=== PATIENT | male | born 1940 | race Caucasian/White ===

== ENCOUNTER 2019-02-07 12:22 | Inpatient (IN) ==
[2019-02-07] MEDS ORDERED: D50W SYRINGE IV ONE (13:37)
[2019-02-07 13:58] LABS: BASO# 0.01 X1000 (0.0-0.2); BASO% 0.1 % (0.0-0.8); EOS# 0.17 X1000 (0.0-0.7); EOS% 1.7 % (0.0-10.0); HEMOGLOBIN 13.5 g/dL (14.0-18.0); IMM GRAN# 0.03 X1000 (0.0-0.04); IMM GRAN% 0.3 % (0.0-0.5); LYMPH# 0.77 X1000 (1.2-3.4); LYMPH% 7.7 % (20.5-51.1); MCH 30.3 PG (27-31); MCHC 32.9 g/dL (33-37); MCV 91.9 FL (81-99); MONO# 0.89 X1000 (0.11-0.59); MONO% 8.9 % (1.7-9.3); MPV 8.9 FL (7.4-10.4); NEUT# 8.13 X1000 (1.4-6.5); NEUT% 81.3 % (42.2-75.2); PLT 167 X1000 (130-400); RBC 4.46 XMIL (4.7-6.1); RDW 13.3 % (11.5-14.5)
--- NOTE | 2019-02-07 14:08 | Diag Imaging Result Doc PS360 ---
EXAM: CHEST-1 VIEW HISTORY: ams TECHNIQUE: Semiupright portable chest single view COMPARISON: 07/19/2014 FINDINGS: Poor inspiratory effort. The heart is enlarged. There are small pleural effusions with basilar atelectasis. IMPRESSION: Cardiomegaly with small effusions and basilar atelectasis. Follow-up films recommended. Electronically signed by Meet Stern 02/07/2019 2:06 PM
[2019-02-07 14:19] LABS: ALB/GLOB RATIO 1.1; ALBUMIN 3.6 g/dL (3.5-5.0); CALCIUM 8.5 mg/dL (8.8-10.2); CREATININE 5.3 mg/dL (0.7-1.2); POTASSIUM 5.4 mmol/L (3.5-5.1); TOTAL BILIRUBIN 0.42 mg/dL (0.20-1.00); TOTAL PROTEIN 6.9 g/dL (6.3-8.3)
--- NOTE | 2019-02-07 14:27 | Diag Imaging Result Doc PS360 ---
EXAM: CT HEAD W/O CONTRAST HISTORY: ams TECHNIQUE: CT head without contrast COMPARISON: None. FINDINGS: No parenchymal hemorrhage. No epidural or subdural hematoma. No subarachnoid hemorrhage. There is atrophy with chronic microvascular ischemic changes. No mass identified on this noncontrasted exam. No hydrocephalus. No sinus opacification. IMPRESSION: 1.No hemorrhage 2.Atrophy with chronic microvascular ischemic changes This exam was performed using automated exposure control, adjustment of mA or kV according to patient size, and/or use of iterative reconstruction technique. Electronically signed by Meet Stern 02/07/2019 2:25 PM
--- NOTE | 2019-02-07 15:40 | EKG Report ---
Test Performed on : 02/07/2019 2:39:31 PM Test Reason : ams Blood Pressure : / mmHG Vent. Rate : 069 BPM Atrial Rate : 074 BPM P-R Int : 000 ms QRS Dur : 156 ms QT Int : 448 ms P-R-T Axes : 000 -53 047 degrees QTc Int : 480 ms Wide QRS rhythm. Left axis deviation Right bundle branch block Septal infarct , age undetermined Abnormal ECG When compared with ECG of 13-MAY-2016 13:48, Wide QRS rhythm. has replaced Sinus rhythm. Unconfirmed Result
[2019-02-07] MEDS ORDERED: MORPHINE IV PRN (15:55)
[2019-02-07] MEDS ORDERED: ZOFRAN IV PRN (15:55)
[2019-02-07] MEDS ORDERED: D5 1/2 NS 1,000 ML IV ONE (15:58)
--- NOTE | 2019-02-07 16:00 | PROVIDER DOCUMENTATION ---
This chart was entered by Sofia Pruitt Scribe, acting as scribe for Ebenezer Chaudhry MD. HPI-General Adult - General Chief Complaint: Low Blood Sugar Stated Complaint: low blood sugar Time Seen by Provider: 02/07/19 13:10 Source: patient Allergies/Adverse Reactions: Patient Allergies Allergy/AdvReac Type Severity Reaction Status Date / Time hydromorphone HCl * Allergy Unknown Verified 02/07/19 14:04 [From Dilaudid] Home Medications: Home Medication List Medication Instructions Recorded Confirmed Last Taken Type Aspirin [Aspirin EC] 81 mg PO DAILY 07/18/14 02/07/19 01/31/19 09:00 History Insulin Detemir [Levemir] 35 unit SUBQ QAM 07/18/14 02/07/19 01/31/19 08:00 History LISINOpril [Prinivil] 20 mg PO BID 07/18/14 02/07/19 01/31/19 09:00 History Levothyroxine [Synthroid] 50 microgm PO DAILY 07/18/14 02/07/19 01/31/19 07:00 History Insulin Detemir [Levemir] 55 unit SUBQ HS 05/13/16 02/07/19 01/31/19 21:00 History Amlodipine [Norvasc] 2.5 mg PO DAILY 01/06/17 02/07/19 01/31/19 09:00 History Isosorbide Mononitrate [Isosorbide 30 mg PO DAILY 01/06/17 02/07/19 01/31/19 09:00 History Mononitrate ER] Carvedilol [Coreg] 12.5 mg PO BID 02/01/19 02/07/19 01/31/19 21:00 History Dutasteride [Avodart] 0.5 mg PO HS #90 cap 02/04/19 02/07/19 Unknown Rx Polyethylene Glycol 3350 [Miralax] 17 gm PO DAILY #30 powd.pack 02/04/19 02/07/19 Unknown Rx Tamsulosin [Flomax] 0.4 mg PO QHS #90 cap 02/04/19 02/07/19 Unknown Rx Tramadol/APAP [Ultracet 1 ea PO Q6H PRN PRN #30 tab 02/04/19 02/07/19 Unknown Rx 37.5MG/325Mg] - History of Present Illness -Gen Adult Nature of Presenting Problems: 78 y/o male presents to ED with hypoglycemia and AMS onset just prior to arr ival. EMS reports FSBS of 40 upon their arrival and that they gave d10 en route to ED. Family of pt states he usually takes care of himself and this is very different from his baseline. Pt is alert and oriented x1 . Location of Pain/Injury: reports: none Pain Radiation: reports: no radiation Quality of Pain: reports: none Severity: reports: mild Onset/Duration: reports: just prior to arrival Timing: reports: still present Context/Activities at Onset: reports: none Modifying Factors: improves with: nothing Associated Symptoms: reports: other (hypoglycemia; AMS) Similar Symptoms Previously?: No Recently seen or treated by another doctor?: No - Diabetes Related Context Context: reports: low blood sugar, change in mental status Review of Systems - Adult - REVIEW OF SYSTEMS - ADULT Constitutional: reports: other (AMS; hypoglycemia). denies: chills, fever Eyes: reports: no symptoms reported Ears, Nose, Mouth & Throat: reports: no symptoms reported Cardiovascular: denies: chest pain, palpitations Respiratory: denies: cough, shortness of breath Gastrointestinal: denies: abdominal pain, diarrhea, nausea, vomiting Genitourinary: reports: no symptoms reported Musculoskeletal: denies: back pain, joint pain Integumentary: reports: no symptoms reported Neurological: reports: other (AMS). denies: dizziness/vertigo, seizure Psychiatric: reports: no symptoms reported Endocrine: reports: other (hypoglycemia). denies: goiter Hematologic/Lymphatic: reports: no symptoms reported Allergic/Immunologic: reports: no symptoms reported All Other Systems: Reviewed and Negative Past History - Adult - PAST MEDICAL HISTORY-ADULT Review of Records: reports: Old Records Reviewed, Nursing Assessment Review, Medications Reviewed Major Childhood Illnesses: reports: denies history Cardiovascular: reports: HTN Endocrine/Immune: reports: Diabetes, thyroid disorder (hypo) Other Conditions: reports: other cancer (skin) - PRIOR SURGERIES/PROCEDURES Surgical/Procedure History: reports: back/neck (cervical fusion) - IMMUNIZATION STATUS Childhood Immunizations: See Nurse Assessment Flu Vaccine: See Nurse Assessment - FAMILY HISTORY Family History: reviewed, not pertinent - SOCIAL HISTORY Smoking: less than 1 pack/day Provider spent 3-5 mins advising pt. on dangers of tobacco.: Discussed manners to quit use, and f/u contacts for add'l counseling. Substance Use: none/never Alcohol Use Frequency: never Living Situation: family Physical Exam-General - PHYSICAL EXAM-ADULT Initial Vital Signs Reviewed: Yes - CONSTITUTIONAL General Appearance: appears well, no apparent distress, slow to respond, other (altered; follows commands; responsive after sternal rub; A&Ox1) - EYES Eyes: PERRL/EOMI, pink conjunctivae - HEAD, EARS, NOSE, MOUTH & THROAT HENMT: normocephalic/atraumatic, moist mucous membranes, normal ENT inspection - NECK Neck: non-tender, full range of motion - RESPIRATORY Respiratory: chest non-tender, lungs clear, normal breath sounds - CARDIOVASCULAR Cardiovascular: normal peripheral pulses, regular rate, rhythm - GASTROINTESTINAL (ABDOMEN) Abdominal Exam: normal bowel sounds, non tender, soft - MUSCULOSKELETAL Back Exam: normal inspection, no CVA tenderness Extremity: normal range of motion, non-tender, normal gait - SKIN Integumentary: normal color, warm/dry - NEUROLOGIC Neurologic: grossly normal, other (altered; follows commands; responsive after sternal rub; A&Ox1; slow to respond) - PSYCHIATRIC Psych/Mental Status: other (altered; follows commands; responsive after sternal rub; A&Ox1; slow to respond) Progress - PLAN OF CARE/RESULTS Progress/Plan/Lab Results: Vital Signs - 8 hr 02/07/19 13:27 Temperature 97.6 F Pulse Rate 64 Respiratory Rate 18 Blood Pressure 139/98 O2 Sat by Pulse Oximetry 95 Laboratory Results - last 24 hr 02/07/19 13:07 POC Glucose 95 Orders Category Date Time Status Nursing- Obtain EKG ONCE Care 02/07/19 13:35 Active CHEST-1 VIEW [RAD] Stat Exams 02/07/19 13:[address] HEAD W/O CONTRAST [CT] Stat Exams 02/07/19 13:47 Ordered CBC WITH ELECTRONIC DIFF [HEME] Stat Lab 02/07/19 13:39 Ordered COMPREHENSIVE METABOLIC PANEL [CHEM] Stat Lab 02/07/19 13:39 Ordered PRO B-NATRIURETIC PEPTIDE Stat Lab 02/07/19 13:39 Ordered TROPONIN T Stat Lab 02/07/19 13:39 Ordered UA [URINALYSIS] [URINALYSIS] Stat Lab 02/07/19 13:35 Uncollected Dextrose 50% Syringe [D50w Syringe] Med 02/07/19 13:37 Discontinued 50 ml IV NOW ONE EKG [EKG] Stat Ther 02/07/19 13:35 Ordered Laboratory Tests 02/07/19 02/07/19 02/07/19 13:07 13:15 13:15 WBC 10.00 RBC 4.46 L Hgb 13.5 L Hct 41.0 L MCV 91.9 MCH 30.3 MCHC 32.9 L RDW Std Deviation 13.3 Plt Count 167 MPV 8.9 Immature Gran % (Auto) 0.3 Neut % (Auto) 81.3 H Lymph % (Auto) 7.7 L [place] % (Auto) 8.9 Eos % (Auto) 1.7 Baso % (Auto) 0.1 Immature Gran # (Auto) 0.03 Neut # (Auto) 8.13 H Lymph # (Auto) 0.77 L [place] # (Auto) 0.89 H Eos # (Auto) 0.17 Baso # (Auto) 0.01 Sodium 125 L Potassium 5.4 H Chloride 94 L Carbon Dioxide 16 L Anion Gap 15 BUN 67 H Creatinine 5.3 H Estimated GFR/1.73 m2 10 BUN/Creatinine Ratio 13 Glucose 87 POC Glucose 95 Calculated Osmolality 270 Calcium 8.5 L Total Bilirubin 0.42 AST 10 ALT 6 L Alkaline Phosphatase 87 Troponin T Lmu-O-Pnnhntevejx Pept Total Protein 6.9 Albumin 3.6 Globulin 3.3 Albumin/Globulin Ratio 1.1 02/07/19 02/07/19 02/07/19 13:15 13:15 13:25 WBC RBC Hgb Hct MCV MCH MCHC RDW Std Deviation Plt Count MPV Immature Gran % (Auto) Neut % (Auto) Lymph % (Auto) [place] % (Auto) Eos % (Auto) Baso % (Auto) Immature Gran # (Auto) Neut # (Auto) Lymph # (Auto) [place] # (Auto) Eos # (Auto) Baso # (Auto) Sodium Potassium Chloride Carbon Dioxide Anion Gap BUN Creatinine Estimated GFR/1.73 m2 BUN/Creatinine Ratio Glucose POC Glucose 90 Calculated Osmolality Calcium Total Bilirubin AST ALT Alkaline Phosphatase Troponin T 0.092 H Ily-G-Uxnadsprimq Pept 1988 H Total Protein Albumin Globulin Albumin/Globulin Ratio 02/07/19 15:31 WBC RBC Hgb Hct MCV MCH MCHC RDW Std Deviation Plt Count MPV Immature Gran % (Auto) Neut % (Auto) Lymph % (Auto) [place] % (Auto) Eos % (Auto) Baso % (Auto) Immature Gran # (Auto) Neut # (Auto) Lymph # (Auto) [place] # (Auto) Eos # (Auto) Baso # (Auto) Sodium Potassium Chloride Carbon Dioxide Anion Gap BUN Creatinine Estimated GFR/1.73 m2 BUN/Creatinine Ratio Glucose POC Glucose 141 H D Calculated Osmolality Calcium Total Bilirubin AST ALT Alkaline Phosphatase Troponin T Cto-S-Fajyjkfxwvr Pept Total Protein Albumin Globulin Albumin/Globulin Ratio Result Diagrams: 02/07/19 13:15 02/07/19 13:15 - EKG 1 Time of EKG reading by physician:: 14:39 EKG Read and Signed by:: Ebenezer Chaudhry EKG Interpretation (*Must complete 3 of following elements*): Abnormal Rate: 69 Rhythm: Wide QRS [place]: left QRS: RBB, other (septal infarct) [place] Interval: normal ST Wave: normal - XRAY 1 XRAY Study: Chest Impression: Abnormal (FINDINGS: Poor inspiratory effort. The heart is enlarged. There are small pleural effusions with basilar atelectasis. IMPRESSION: Cardiomegaly with small effusions and basilar atelectasis. Follow-up films recommended. Electronically signed by Meet Stern 02/07/2019 2:06 PM) - CT/MRI 1 CT Study: Head Impression: Normal (FINDINGS: No parenchymal hemorrhage. No epidural or subdural hematoma. No subarachnoid hemorrhage. There is atrophy with chronic micro vascular ischemic changes. No mass identified on this noncontrasted exam. No hydrocephalus. No sinus opacification. IMPRESSION: 1.No hemorrhage 2.Atrophy with chronic microvascular ischemic changes This exam was performed using automated exposure control, adjustment of mA or kV according to patient size, and/or use of iterative reconstruction technique. Electronically signed by Meet Stern 02/07/2019 2:25 PM) - CONSULTS/PCP/HOSPITALIST Notification #1 *Consult/PCP/Hospitalist*: Dr. Canela Time Discussed: 15:42 Reason/Comments: AMS; hypoglycemia Consult Disposition: Admit Departure - Departure Date of Disposition Decision: 02/07/19 Time of Disposition Decision: 15:44 DIAGNOSIS: NSTEMI (non-ST elevated myocardial infarction) Altered mental status Qualifiers: Altered mental status type: unspecified Qualified Code(s): R41.82 - Altered mental status, unspecified Acute renal failure Qualifiers: Acute renal failure type: unspecified Qualified Code(s): N17.9 - Acute kidney failure, unspecified Disposition: ADMITTED INPATIENT 09 Certified Medical Emergency: Emergent Condition: Stable Referrals and Follow-Ups: Jose Canela MD [Primary Care Provider] - Discharge Education: Steps to Quit Smoking, [id number] - Critical Care Note This patient required my direct & personal management of CC.: No Attestation - Physician/ AMADEO Attestation Patient care was provided by Advanced Practice Provider:: No The physician spent face to face time with patient:: Yes Advanced Practice Provider documentation review:: Supervising physician onsite and consulted in the evaluation and care of this patient. The physician did have a face to face encounter with the patient. This chart was documented by the indicated scribe, (Sofia Pruitt, Saira) and accurately reflects the services I performed and decisions made by me, Ebenezer Chaudhry MD, as attested by the provider's signature.
--- NOTE | 2019-02-07 20:10 | Diag Imaging Result Doc PS360 ---
EXAM: US RENAL 2 (RETROPER) COMPLETE HISTORY: hong/arf TECHNIQUE: Renal ultrasound COMPARISON: None. FINDINGS: Neither kidney identified. The urinary bladder is overly distended with a volume of 1125 cc. The Wolff catheter is apparently inferior to the bladder. Recent CT demonstrated a markedly enlarged prostate. Electronically signed by Meet Stern 02/07/2019 8:08 PM
[2019-02-07 20:14] LABS: URINE SOURCE CATH
[2019-02-07 20:43] LABS: BILIRUBIN URINE NEGATIVE (NEGATIVE); BLOOD URINE LARGE (NEGATIVE); COLOR BROWN; GLUCOSE URINE NEGATIVE (NEGATIVE); KETONE URINE NEGATIVE (NEGATIVE); LEUKOCYTES URINE TRACE (NEGATIVE); NITRITE URINE NEGATIVE (NEGATIVE); PROTEIN URINE 100 mg/dL (NEGATIVE); SP GRAVITY URINE 1.001; TURBIDITY URINE HAZY (CLEAR); UR EPITHELIAL CELLS <10 /HPF (<10); URINE BACTERIA NEGATIVE /HPF; URINE RBC TNTC /HPF (<10); URINE WBC <10 /HPF (<10); UROBILINOGEN URINE NORMAL (NORMAL)
[2019-02-07 21:21] LABS: URINE CASTS NONE SEEN; URINE CRYSTALS NONE SEEN; URINE YEAST NONE SEEN
[2019-02-07] MEDS: PROTONIX IV SCH (21:29)
[2019-02-07] MEDS: FLOMAX PO SCH (21:30)
[2019-02-07] MEDS: SODIUM CHLORIDE 0.9% INJ SCH (21:30)
[2019-02-07] MEDS: AVODART PO SCH (21:30)
[2019-02-08] MEDS: SYNTHROID PO SCH (06:06)
[2019-02-08 06:07] LABS: BASO# 0.01 X1000 (0.0-0.2); BASO% 0.1 % (0.0-0.8)
[2019-02-08 06:23] LABS: EOS# 0.15 X1000 (0.0-0.7); EOS% 1.9 % (0.0-10.0); HEMOGLOBIN 11.9 g/dL (14.0-18.0); IMM GRAN# 0.02 X1000 (0.0-0.04); IMM GRAN% 0.3 % (0.0-0.5); LYMPH# 0.78 X1000 (1.2-3.4); LYMPH% 9.9 % (20.5-51.1); MCH 30.3 PG (27-31); MCHC 33.1 g/dL (33-37); MCV 91.6 FL (81-99); MONO# 0.71 X1000 (0.11-0.59); MPV 9.5 FL (7.4-10.4); NEUT# 6.21 X1000 (1.4-6.5); NEUT% 78.8 % (42.2-75.2); PLT 170 X1000 (130-400); RBC 3.93 XMIL (4.7-6.1); WBC 7.88 X1000 (4.8-10.8)
[2019-02-08 07:23] LABS: ALB/GLOB RATIO 0.9; ALBUMIN 2.8 g/dL (3.5-5.0); CALCIUM 7.9 mg/dL (8.8-10.2); CREATININE 4.9 mg/dL (0.7-1.2); POTASSIUM 4.9 mmol/L (3.5-5.1); TOTAL BILIRUBIN 0.46 mg/dL (0.20-1.00)
[2019-02-08] MEDS ORDERED: D5 1/2 NS 250 ML IV SCH (07:45)
--- NOTE | 2019-02-08 09:01 | HISTORY AND PHYSICAL ---
CHIEF COMPLAINT: Altered mental status, hypoglycemia, worsening of renal function status. HISTORY OF PRESENT ILLNESS: This 78-year-old white male was discharged recently on Thursday for chronic kidney disease and bladder outlet obstruction. The patient had a Wolff placed and subsequently was placed on Flomax and Avodart. Wolff was removed on Thursday and bladder voiding trial was initiated. He was not emptying the bladder. He has postvoid residual urine of more than 400, as per the nurses. I told the nurses to reinsert the Wolff with the leg bag, and send home on medications, to follow up with my office as well as Dr. Rider. Apparently, according to the , he is not making any urine. In the leg bag, they have not changed a whole lot, maybe more than 3 ounces. He was completely obtunded, unconscious, and blood sugar was dropping, and called 911 and brought to the hospital. Initial blood sugar was 41. He was subsequently given D50. Despite this, his mental status was not improved. The patient was placed on D5 [address] was negative. However, creatinine has gone up to 5.2. I did examine the patient in [facility] and the Wolff was there, and a lot of free urine was obtained. Bladder scan reported 163 mL. I called stat ultrasound. They were not able to see the kidneys due to a lot of edema. I asked the tech to do the bladder scan. Apparently, the Wolff was not well visible in the bladder, and he had 1200 mL in the bladder. I called the nurses to advance the Wolff catheter and now freely draining. Apparently, there was some kink or maybe the Wolff was slightly dislodged. As a result, he was rehospitalized for continued IV fluids, monitoring the blood sugars, and also we will closely monitor his cardiac status as well. PAST MEDICAL HISTORY: 1. Abnormal EKG with right bundle. 2. Allergic rhinitis. 3. BPH. 4. Diastolic heart failure. 5. Chronic kidney disease, now creatinine 3.0. 6. CAD with a stent in the LAD. 7. Type 2 diabetes. 8. Tobacco abuse. 9. Hypertension. 10. Hypothyroid. PAST SURGICAL HISTORY: 1. C5-C6 fusion. 2. Bilateral cataract surgery. 3. Umbilical hernia repair. 4. Cholecystectomy. 5. Stent in the LAD. ALLERGIES: Hydromorphone. SOCIAL HISTORY: for 56 years. Three children. Lives in [place]. No smoking. No alcohol. FAMILY HISTORY: Father , cause was not known. Mom with heart failure. HEALTH MAINTENANCE: Flu vaccine 2017, pneumococcal 2004, and last exam by Dr. Rider, colonoscopy 2019, eye exam [address] Cottrell. MEDICATIONS: 1. Lisinopril 20 p.o. b.i.d. 2. Synthroid 25 mcg daily. 3. Lantus 35 in the morning, 55 in the evening. 4. Aspirin 81 mg daily. 5. Isosorbide 30 mg daily. 6. Amlodipine 2.5 daily. 7. Coreg 12.5 p.o. b.i.d. 8. Avodart 0.5 daily. 9. Flomax 0.4 daily. 10. Ultracet as needed for pain. 11. MiraLAX 17 g daily. REVIEW OF SYSTEMS: The patient was completely obtunded and has complaints of lower abdominal pain. He denies having any chest pain, shortness of breath. He is not eating well. Mild swelling of feet. No focal symptoms or weakness. PHYSICAL EXAMINATION: VITAL SIGNS: Temperature is 97.7 degrees, tachycardic, vitals are stable, 95% on room air. HEENT: Atraumatic, normocephalic. Pupils equal, reactive to light. NECK: Supple. No lymphadenopathy. CHEST: Bilateral air entry. HEART: Sounds are regular. ABDOMEN: Belly is soft, obese, and nontender. Good bowel sounds. Wolff was seen. EXTREMITIES: No peripheral edema or cyanosis. NEUROLOGIC: No obvious neurological deficits. INVESTIGATIONS: CBC: White cell count 10, hematocrit 41, platelets 167,000. Sodium 135, potassium 5.4, BUN 67, creatinine 5.3, glucose 152. ProBNP slightly elevated. Urinalysis positive for blood. ASSESSMENT AND PLAN: An 78-year-old white male admitted to the hospital: 1. Altered mental status due to metabolic encephalopathy, due to hypoglycemia, due to worsening of the kidney injury from malposition of the Wolff catheter. Plan is advance the Wolff, follow up on creatinine, and continue D5 at 100 mL an hour. 2. Reconcile home medications slowly. 3. Benign prostatic hypertrophy, on Flomax and Avodart, and consult Dr. Rider. 4. Deep venous thrombosis prophylaxis with Lovenox. 5. Gastrointestinal prophylaxis with intravenous Protonix. 6. Monitoring daily with CBC and CMP. 7. Will closely monitor for signs of infection. 8. Discussed with the family at bedside and will follow up. 9. Will hold the insulin at this time. 10. Positive troponin is probably from the chronic kidney disease. He is not complaining of any chest pain. Recently, echocardiogram was done which showed normal left ventricular function. Will closely monitor. cc: Federico Canela MD
[2019-02-08] MEDS: MIRALAX PO SCH (09:35)
[2019-02-08] MEDS: LOVENOX SUBQ SCH (09:35)
[2019-02-08] MEDS: D5 1/2 NS 1,000 ML IV SCH ×2 (09:35→21:44)
[2019-02-08] MEDS: TYLENOL PO PRN (15:29)
--- NOTE | 2019-02-08 19:26 | PROGRESS NOTE ---
DATE: 02/08/2019 SUBJECTIVE: After repositioning the Wolff, the patient has excellent urine output. He still complains of cough. He is not drinking well. Appetite is poor. I spoke to Dr. Rider. At some point he needs a TURP. EXAMINATION: Vital Signs: Temperature is 98, pulse 72, blood pressure 127/55, General: Slightly confused and productive cough. Lungs: Bilateral air entry. Heart: Heart sounds are regular. Abdomen: Belly is soft, obese, nontender. Wolff was placed and urine output is excellent. INVESTIGATIONS: CBC: White cell count 7.8, hematocrit 36, platelets 170,000. Sodium 126, potassium 4.9, BUN 68, creatinine 4.9, glucose 178. ASSESSMENT AND PLAN: 1. Acute kidney injury due to bladder outlet obstruction. Repositioning of the Wolff and continue to monitor daily CBC and CMP. 2. Continue D5 half-normal saline 80 mL/hour. 3. Sliding scale with insulin coverage. 4. DVT prophylaxis with Lovenox. 5. Hypothyroidism, on Synthroid. 6. Discontinue morphine and slowly reconcile home medications. Out of the bed with physical therapy. Discussed with Dr. Rider for followup on BPH. Continue on Flomax and Avodart. LEVEL OF DOCUMENTATION: 25 minutes. cc: Federico Canela MD
[2019-02-08] MEDS: FLOMAX PO SCH (21:42)
[2019-02-08] MEDS: HUMALOG SUBQ SCH (21:42)
[2019-02-08] MEDS: PROTONIX IV SCH (21:42)
[2019-02-08] MEDS: AVODART PO SCH (21:42)
[2019-02-08] MEDS: SODIUM CHLORIDE 0.9% INJ SCH (21:42)
--- NOTE | 2019-02-08 23:27 | CONSULTATION ---
DATE OF CONSULTATION: 02/08/2019 ATTENDING/REFERRING PHYSICIAN: Dr. Canela. HISTORY OF PRESENT ILLNESS: This 78-year-old male was admitted with mental status changes and urinary retention. He also had acute on chronic renal failure. The patient was discharged home on 05 February with a Wolff catheter in place, and returned on 07 February with severe distention of his bladder. The Wolff catheter was readjusted and pushed further into the bladder, and 1200 mL of urine returned. Currently, he states he feels much better and is doing well. The patient was originally admitted on 31 January with severe left flank pain and problems voiding. His CT stone search at that time revealed mild hydronephrosis on the left, with a probable recently passed stone. Also noted, was a very large prostate measuring a 8.5 x 7.5 cm. At that time, the patient was started on Flomax 0.4 mg b.i.d. and Avodart 0.5 mg a day. He was going to undergo a voiding trial but the Wolff catheter was pulled back into his prostatic urethra that caused retention. PAST MEDICAL HISTORY: Includes hypertension, coronary artery disease, hypothyroidism, diabetes, chronic kidney disease. CURRENT MEDICATIONS: Documented on the chart and include Flomax 0.4 mg b.i.d. and Avodart 0.5 mg a day. PAST SURGICAL HISTORY: Cervical disk fusion, bilateral cataract surgery, umbilical hernia repair, open cholecystectomy, coronary artery stent placement. SOCIAL HISTORY: He smokes a small cigar once a day and has for many years. ETOH use negative. He lives at home. ALLERGIES: No known drug allergies. REVIEW OF SYSTEMS: He states he is usually in good health. He denies any chest pains, increased shortness of breath, strokes, seizures, or bowel problems. PHYSICAL EXAMINATION: General: An obese, age apparent, normally developed, white male, oriented in all ways and cooperative. HEENT: Normal for age. Lungs: Clear. Cardiovascular: Regular rate and rhythm, but distant breath sounds. Abdomen: Obese soft, nontender. No hepatosplenomegaly or masses. Normal bowel sounds. Genitourinary: On 01 February revealed a uncircumcised male with Wolff catheter in place. Both testes are down. Left side is high riding with small bilateral hydroceles. Rectal: On 01 February revealed normal sphincter tone with the prostate greater than 90 g, smooth and symmetric. Extremities: No clubbing, cyanosis, or edema. Neuro: No focal deficits. LABORATORY EVALUATION: He has a white count of 7.88, hemoglobin 11.9, hematocrit of 36, and platelets 170,000. His serum sodium is 126, potassium 4.9, chloride 96, bicarb 13, BUN 68, creatinine 4.9. Serum glucose was 159. His urine culture was no growth. IMPRESSION: Patient with multiple medical problems and urinary retention secondary to a malpositioned Wolff catheter. PLAN: 1. Recommend continuing Flomax at 0.4 mg a day and Avodart at 0.5 mg a day. 2. Keep Wolff catheter for 7 days. 3. We will try to schedule cystoscopic exam during this hospitalization. Thank you for this consultation. cc: MD Federico Silverman MD
[2019-02-09 05:49] LABS: BASO# 0.02 X1000 (0.0-0.2); BASO% 0.3 % (0.0-0.8); EOS# 0.21 X1000 (0.0-0.7); EOS% 3.4 % (0.0-10.0); HEMOGLOBIN 11.8 g/dL (14.0-18.0); IMM GRAN# 0.02 X1000 (0.0-0.04); IMM GRAN% 0.3 % (0.0-0.5); LYMPH# 0.74 X1000 (1.2-3.4); LYMPH% 11.8 % (20.5-51.1); MCH 30.2 PG (27-31); MCHC 32.8 g/dL (33-37); MCV 92.1 FL (81-99); MONO# 0.72 X1000 (0.11-0.59); MONO% 11.5 % (1.7-9.3); MPV 9.2 FL (7.4-10.4); NEUT# 4.54 X1000 (1.4-6.5); NEUT% 72.7 % (42.2-75.2); PLT 162 X1000 (130-400); RBC 3.91 XMIL (4.7-6.1); RDW 13.2 % (11.5-14.5); WBC 6.25 X1000 (4.8-10.8)
[2019-02-09] MEDS: SYNTHROID PO SCH (06:08)
[2019-02-09] MEDS: HUMALOG SUBQ SCH ×5 (06:09→20:02)
[2019-02-09 06:23] LABS: ALB/GLOB RATIO 0.8; ALBUMIN 2.6 g/dL (3.5-5.0); CALCIUM 7.9 mg/dL (8.8-10.2); CREATININE 4.1 mg/dL (0.7-1.2); POTASSIUM 4.8 mmol/L (3.5-5.1); TOTAL BILIRUBIN 0.3 mg/dL (0.20-1.00); TOTAL PROTEIN 5.7 g/dL (6.3-8.3)
[2019-02-09] MEDS: LOVENOX SUBQ SCH (08:51)
[2019-02-09] MEDS: MIRALAX PO SCH (08:51)
[2019-02-09] MEDS: D5 1/2 NS 1,000 ML IV SCH ×2 (11:14→23:19)
--- NOTE | 2019-02-09 19:15 | PROGRESS NOTE ---
DATE: 02/09/2019 SUBJECTIVE: The patient is still confused and weak. REVIEW OF SYSTEMS: None reported. OBJECTIVE: Vital Signs: Temperature is 98 degrees, pulse 62, blood pressure is 140/61. HEENT: Within normal limits. Chest: Bilateral air entry. Heart: Sounds are regular. Abdomen: Belly is soft, nontender. Wolff was draining. Extremities: Slight edema noted. LABORATORY INVESTIGATIONS: CBC: White cell count 6.2, hematocrit 36, platelets 162,000. Sodium 129, potassium 4.8, chloride 102, BUN 72, creatinine 4.1, glucose 215. LFTs were normal. Urine cultures were negative. ASSESSMENT: 1. Acute kidney injury with chronic renal failure due to bladder outlet obstruction. 2. Hyponatremia. 3. Diabetes with hypoglycemia. 4. Altered mental status, improving. PLAN OF CARE: Out of the bed with physical therapy. Advance the diet. Continue D5 half-normal saline and sliding scale with insulin coverage if the with sugar is more than 250. DVT/GI prophylaxis as per order sheet, and MiraLAX for constipation. We will continue to monitor BMP on a daily basis. Discussed with the family at bedside. LEVEL OF DOCUMENTATION: 25 minutes. cc: Federico Canela MD
[2019-02-09] MEDS: TYLENOL PO PRN (20:01)
[2019-02-09] MEDS: FLOMAX PO SCH (20:02)
[2019-02-09] MEDS: AVODART PO SCH (20:02)
[2019-02-09] MEDS: PROTONIX IV SCH (20:02)
[2019-02-09] MEDS: SODIUM CHLORIDE 0.9% INJ SCH (20:03)
[2019-02-10 05:24] LABS: BASO# 0.02 X1000 (0.0-0.2); BASO% 0.4 % (0.0-0.8); EOS# 0.21 X1000 (0.0-0.7); EOS% 4.3 % (0.0-10.0); HEMATOCRIT 36.1 % (42.0-52.0); HEMOGLOBIN 11.7 g/dL (14.0-18.0); IMM GRAN# 0.02 X1000 (0.0-0.04); IMM GRAN% 0.4 % (0.0-0.5); LYMPH# 0.63 X1000 (1.2-3.4); MCH 30.1 PG (27-31); MCHC 32.4 g/dL (33-37); MCV 92.8 FL (81-99); MONO# 0.55 X1000 (0.11-0.59); MONO% 11.4 % (1.7-9.3); MPV 8.7 FL (7.4-10.4); NEUT% 70.5 % (42.2-75.2); PLT 201 X1000 (130-400); RBC 3.89 XMIL (4.7-6.1); WBC 4.83 X1000 (4.8-10.8)
[2019-02-10 05:53] LABS: ALBUMIN 2.9 g/dL (3.5-5.0); CALCIUM 7.7 mg/dL (8.8-10.2); POTASSIUM 4.9 mmol/L (3.5-5.1); TOTAL BILIRUBIN 0.23 mg/dL (0.20-1.00); TOTAL PROTEIN 5.9 g/dL (6.3-8.3)
[2019-02-10] MEDS: HUMALOG SUBQ SCH ×4 (06:05→20:58)
[2019-02-10] MEDS: SYNTHROID PO SCH (08:21)
--- NOTE | 2019-02-10 09:38 | PROGRESS NOTE ---
DATE: 02/10/2019 SUBJECTIVE: The patient was out of the bed yesterday, ambulatory with physical therapy, feeling a little better. The patient is going for cystoscopy. REVIEW OF SYSTEMS: None reported. Confusion is improving. OBJECTIVE: Vital Signs: On examination, temperature is 97.9 degrees, pulse is 65, blood pressure is 160/71, 266 pounds. General: Awake and oriented. Chest: Clear. Heart: Distant heart sounds. Abdomen: Belly is soft, nontender. Wolff was placed. Extremities: 1+ edema noted. Neurologic: No obvious neurological deficits. LABS: CBC: White cell count 4.8, hematocrit 36, platelets 201. Sodium 136, potassium 4.9, BUN 56, creatinine 3.0, glucose is 252. ASSESSMENT AND PLAN: 1. Acute kidney injury due to bladder outlet obstruction. Creatinine is coming down. Gentle hydration. 2. Diabetes with hypoglycemia, stable. 3. Benign prostatic hypertrophy on Avodart and Flomax. 4. Hypothyroidism on Synthroid. 5. Deep vein thrombosis and gastrointestinal prophylaxis as per order sheet. Out of the bed. Follow up on cystoscopy and daily monitoring. LEVEL OF DOCUMENTATION: 25 minutes. cc: Federico Canela MD
[2019-02-10] MEDS: MIRALAX PO SCH (11:00)
[2019-02-10] MEDS: D5 1/2 NS 1,000 ML IV SCH (11:53)
[2019-02-10] MEDS ORDERED: XYLOCAINE-MPF 2% ONE (14:59)
[2019-02-10] MEDS ORDERED: DIPRIVAN 1% ONE (14:59)
[2019-02-10] MEDS ORDERED: ROBINUL ONE (14:59)
[2019-02-10] MEDS ORDERED: NEOSPORIN G.U. IRRIGANT ONE (15:13)
[2019-02-10] MEDS ORDERED: KEFZOL 2 GM/D5W 2 GM/50 ML IVPB ONE (15:17)
[2019-02-10] MEDS ORDERED: ZOFRAN ONE (15:35)
[2019-02-10] MEDS: MORPHINE ONE ×4 (16:25→17:59)
[2019-02-10] MEDS: NORCO-5 PO PRN ×2 (17:26→22:56)
--- NOTE | 2019-02-10 20:49 | OPERATIVE NOTE ---
PROCEDURE DATE: 02/10/2019 PREOPERATIVE DIAGNOSIS: Urinary retention with gross hematuria and an enlarged prostate. POSTOPERATIVE DIAGNOSIS: Urinary retention with gross hematuria and an enlarged prostate with bleeding areas at the bladder neck. PROCEDURE PERFORMED: 1. Cystoscopic exam. 2. Clot irrigation, fulgurate bleeding areas at the bladder neck. 3. Bilateral retrograde ureteral pyelograms. 4. Place Wolff catheter. ANESTHESIA: General via laryngeal mask. FINDINGS: Cystoscopic exam: Urethra-greater than 21 Bruneian, without stricture. Prostate - coapting lateral lobes, elevated bladder neck, length approximately 6.5 cm, median lobe present. Bladder-normal ureteral orifices bilaterally. Bullous edema of the trigone and posterior bladder wall consistent with a previously indwelling Wolff. There were some clots in the base of the bladder. There were grade 3 trabeculations. Small cellules throughout. No papillary lesions. No large diverticula. Left retrograde ureteral pyelogram revealed mild dilation of the ureter and the kidney collecting system, but no filling defects. Both sides were similar. Rectal exam reveals a prostate of greater than 100 g, smooth and symmetric. INDICATION FOR PROCEDURE: This 78-year-old male has a history of urinary retention. He developed gross hematuria. A Wolff catheter was placed and some clots were irrigated. He is currently anticoagulated due to cardiac problems. A CT scan revealed a markedly enlarged prostate and mild bilateral hydroureteronephrosis. His creatinine at admission was 4.1, after Wolff catheter drainage it is 3.0 today. DESCRIPTION OF PROCEDURE: After informed consent was obtained from the patient and family and him receiving IV antibiotics, he was taken to the main OR cystoscopy room, placed in the supine position. General anesthesia via laryngeal mask was achieved. He was then placed in the low lithotomy position, prepped and draped in the usual sterile fashion for cystoscopic exam. A 21- Bruneian sheath cystoscope was passed through the patient's urethra, prostate, and bladder with findings noted above. A Betty tip catheter syringe was used to irrigate clots from the bladder. The Bugbee electrode was placed and hemostasis was achieved at the bladder neck and proximal prostatic urethra. After the bladder was inspected, an 8-Bruneian cone-tip catheter was passed through the cystoscope, engaged in the left ureteral orifice. Contrast was injected. Right side was accomplished similarly. Again, no filling defects on either side. Each ureter was somewhat tortuous and a mild dilation on both sides. The drain film revealed emptying of both collecting systems. There was mild hydroureteronephrosis on either side. The ureters were tortuous. The 8-Bruneian cone-tipped catheter was removed. The Bugbee electrode was again placed and hemostasis was achieved. The bladder was left distended. The cystoscope was removed. A 20-Bruneian silicone Wolff catheter was passed through the patient's urethra and in the bladder. 20 mL of sterile water were placed in the Wolff's balloon. The Wolff was placed to gravity drain. The efflux was sanchez red, the catheter was irrigated and the efflux cleared to light pink. Rectal exam was performed. He tolerated the procedure well. Estimated blood loss was 5 mL. He was taken to recovery room in good condition. cc: MD Federico Silverman MD
[2019-02-10] MEDS: AVODART PO SCH (20:58)
[2019-02-10] MEDS: PROTONIX IV SCH (20:58)
[2019-02-10] MEDS: FLOMAX PO SCH (20:58)
[2019-02-10] MEDS: LOVENOX SUBQ SCH (21:35)
[2019-02-11] MEDS: D5 1/2 NS 1,000 ML IV SCH ×3 (00:02→13:20)
[2019-02-11] MEDS: HUMALOG SUBQ SCH ×4 (06:25→21:32)
[2019-02-11] MEDS: SYNTHROID PO SCH (06:26)
[2019-02-11] MEDS: MIRALAX PO SCH (08:14)
--- NOTE | 2019-02-11 11:04 | Diag Imaging Result Doc PS360 ---
EXAM: RETROGRADES 2 OR 3 FILMS INDICATION: BILAT RETROGRADE TECHNIQUE: COMPARISON: None. FINDINGS: 58 spot fluoroscopic images were provided, which were performed during retrograde pyeloureterogram by Dr. Víctor Rider. Both ureters have a very irregular contour with multifocal narrowing suggesting possible strictures. There is mild prominence of the right renal pelvis as compared to the left. At the upper pole calyx on the left, there are a couple of possible filling defects. These could represent stones or blood clots. However, note that no radiopaque stones are identified in this region on the recent CT dated 02/01/2019. IMPRESSION: As above. Please correlate with live fluoroscopic imaging. Electronically signed by Artie Newton 02/11/2019 11:02 AM
[2019-02-11] MEDS: NORCO-5 PO PRN ×2 (13:16→19:50)
--- NOTE | 2019-02-11 20:06 | PROGRESS NOTE ---
DATE: 02/11/2019 SUBJECTIVE: Interval history was reviewed. Dr. Rider has been consulted. He did a cystoscopy, bilateral retrograde pyelogram, placing Wolff catheter. He has retention of urine with gross hematuria, enlarged prostate with bleeding areas at bladder neck. He continues to have some blood in the Wolff. He is still weak and feeble. OBJECTIVE: Vital signs: Temperature is 98 degrees, pulse is 66, blood pressure is 182/78. Ins and outs are even. HEENT: Exam within normal limits. Neck: Supple. Chest: Clear. Cardiovascular: Heart sounds are regular. Abdomen: Belly is soft, obese, nontender. Genitourinary: Wolff was placed. Neurological: No obvious neurological deficits. INVESTIGATIONS: None reported. ASSESSMENT AND PLAN: 1. Chronic acute renal failure on chronic kidney disease. Continue gentle hydration at 80 mL an hour. 2. Repeat the labs in the morning. 3. Benign prostatic hypertrophy on Flomax and Avodart. 4. Deep venous thrombosis and gastrointestinal prophylaxis as per order sheet and Dr. Rider. He is going to do the transurethral resection of prostate sometime next week. Continue present treatment out of the bed with physical therapy and slowly reconcile his home medications, and since the blood pressure is running high, I am going to restart on amlodipine Coreg, isosorbide. cc: Federico Canela MD
[2019-02-11] MEDS: COREG PO SCH (21:32)
[2019-02-11] MEDS: PROTONIX IV SCH (21:32)
[2019-02-11] MEDS: FLOMAX PO SCH (21:32)
[2019-02-11] MEDS: LOVENOX SUBQ SCH (21:32)
[2019-02-11] MEDS: AVODART PO SCH (21:32)
[2019-02-12 05:50] LABS: BASO# 0.03 X1000 (0.0-0.2); BASO% 0.6 % (0.0-0.8); EOS# 0.39 X1000 (0.0-0.7); EOS% 7.7 % (0.0-10.0); HEMATOCRIT 38.3 % (42.0-52.0); HEMOGLOBIN 12.1 g/dL (14.0-18.0); LYMPH# 0.93 X1000 (1.2-3.4); LYMPH% 18.3 % (20.5-51.1); MCH 29.8 PG (27-31); MCHC 31.6 g/dL (33-37); MCV 94.3 FL (81-99); MONO# 0.56 X1000 (0.11-0.59); MPV 8.5 FL (7.4-10.4); NEUT# 3.17 X1000 (1.4-6.5); NEUT% 62.4 % (42.2-75.2); PLT 188 X1000 (130-400); RBC 4.06 XMIL (4.7-6.1); RDW 12.8 % (11.5-14.5); WBC 5.08 X1000 (4.8-10.8)
[2019-02-12] MEDS: NORCO-5 PO PRN ×3 (05:53→22:07)
[2019-02-12] MEDS: SYNTHROID PO SCH ×2 (05:54→06:30)
[2019-02-12 06:24] LABS: CALCIUM 8.2 mg/dL (8.8-10.2); CREATININE 2.3 mg/dL (0.7-1.2); POTASSIUM 5.1 mmol/L (3.5-5.1)
[2019-02-12] MEDS: D5 1/2 NS 1,000 ML IV SCH (06:30)
[2019-02-12] MEDS: HUMALOG SUBQ SCH ×4 (06:51→22:08)
[2019-02-12] MEDS: IMDUR PO SCH (09:03)
[2019-02-12] MEDS: NORVASC PO SCH (09:03)
[2019-02-12] MEDS: MIRALAX PO SCH (09:03)
[2019-02-12] MEDS: COREG PO SCH ×2 (09:03→22:07)
--- NOTE | 2019-02-12 18:36 | PROGRESS NOTE ---
DATE: 02/12/2019 SUBJECT: The patient is doing much better. He is out of the bed and his mental status slowly improving. He is watching TV. is at bedside. REVIEW OF SYSTEMS: None reported. EXAMINATION: Temperature is 97.5 degrees, pulse is 64, blood pressure is 154/62.HEENT: Within normal limits. Chest: Clear. Heart: Sounds are regular. Belly: Is soft, nontender. Wolff was clear of blood. INVESTIGATIONS: CBC. White cell count 5.0, hematocrit 38, platelets 188,000. SMA 7. Sodium 137, potassium 5.1, BUN 33, creatinine 2.3. ASSESSMENT AND PLAN: 1. Acute kidney injury with chronic kidney disease due to bladder outlet obstruction, stable. 2. Waiting for transurethral resection of prostate next week. 3. Altered mental status, delirium improving. 4. Diabetes. Hypoglycemia is improving. 5. Discontinue IV fluids today. 6. Benign prostatic hypertrophy. Continue on Flomax and Avodart. 7. Hypertension on Norvasc and Coreg. 8. Deep venous thrombosis prophylaxis with Lovenox. Continue insulin with sliding scale coverage and hypothyroidism on Synthroid and will continue to monitor blood workup over the weekend and he is going to stay here until TURP done. LEVEL OF DOCUMENTATION: 25 minutes. cc: Federico Canela MD
[2019-02-12] MEDS: PROTONIX IV SCH (22:07)
[2019-02-12] MEDS: AVODART PO SCH (22:07)
[2019-02-12] MEDS: FLOMAX PO SCH (22:08)
[2019-02-12] MEDS: LOVENOX SUBQ SCH (22:08)
[2019-02-13 05:30] LABS: BASO# 0.02 X1000 (0.0-0.2); BASO% 0.4 % (0.0-0.8); EOS# 0.35 X1000 (0.0-0.7); EOS% 7.2 % (0.0-10.0); HEMATOCRIT 37.4 % (42.0-52.0); HEMOGLOBIN 11.7 g/dL (14.0-18.0); IMM GRAN# 0.03 X1000 (0.0-0.04); IMM GRAN% 0.6 % (0.0-0.5); LYMPH# 0.98 X1000 (1.2-3.4); LYMPH% 20.2 % (20.5-51.1); MCH 29.4 PG (27-31); MCHC 31.3 g/dL (33-37); MONO# 0.62 X1000 (0.11-0.59); MONO% 12.8 % (1.7-9.3); MPV 8.5 FL (7.4-10.4); NEUT# 2.84 X1000 (1.4-6.5); NEUT% 58.8 % (42.2-75.2); PLT 194 X1000 (130-400); RBC 3.98 XMIL (4.7-6.1); RDW 12.6 % (11.5-14.5); WBC 4.84 X1000 (4.8-10.8)
[2019-02-13 05:49] LABS: CALCIUM 8.4 mg/dL (8.8-10.2); CREATININE 2.1 mg/dL (0.7-1.2); POTASSIUM 5.4 mmol/L (3.5-5.1)
[2019-02-13] MEDS: HUMALOG SUBQ SCH ×4 (06:26→21:01)
[2019-02-13] MEDS: SYNTHROID PO SCH (06:45)
[2019-02-13] MEDS: NORCO-5 PO PRN (06:45)
[2019-02-13] MEDS: NORVASC PO SCH (08:24)
[2019-02-13] MEDS: IMDUR PO SCH (08:24)
[2019-02-13] MEDS: MIRALAX PO SCH (08:24)
[2019-02-13] MEDS: COREG PO SCH ×2 (08:24→20:58)
[2019-02-13] MEDS ORDERED: DULCOLAX PO ONE (10:23)
--- NOTE | 2019-02-13 12:32 | PROGRESS NOTE ---
DATE: 02/13/2019 SUBJECTIVE: The patient complains with pain unrelieved by [place] 5. He states that it seems to wear off too soon. He also has some constipation and has not had a bowel movement in 3 days. [place] was increased to 7.5 q.6 hours p.r.n. pain, and he was given Dulcolax 5 mg once today in addition to his daily MiraLAX. OBJECTIVE: Vital signs: Stable with temperature 98.9 degrees, heart rate 58, respiration 18, blood pressure 156/72, O2 saturation on room air 96%. Chest: Clear. Abdomen: Obese without mass or tenderness. Extremities: He has no ankle edema. He has an indwelling Wolff. LABORATORY: Hemoglobin 11.7, hematocrit 37.4, white blood count 4800 with normal differential. Sodium 136, potassium 5.4, BUN 31, creatinine 2.1, glucose 192, calcium 8.4. ASSESSMENT AND PLAN: Plans are for prostate surgery early this week. cc: MD Federico Mendez MD
[2019-02-13] MEDS: NORCO-7.5 PO PRN ×2 (13:49→20:58)
[2019-02-13] MEDS: PROTONIX IV SCH (20:57)
[2019-02-13] MEDS: FLOMAX PO SCH (20:57)
[2019-02-13] MEDS: LOVENOX SUBQ SCH (20:58)
[2019-02-13] MEDS: AVODART PO SCH (21:00)
[2019-02-14 05:43] LABS: BASO# 0.02 X1000 (0.0-0.2); BASO% 0.4 % (0.0-0.8); EOS% 6.3 % (0.0-10.0); HEMATOCRIT 37.1 % (42.0-52.0); HEMOGLOBIN 11.9 g/dL (14.0-18.0); IMM GRAN# 0.03 X1000 (0.0-0.04); IMM GRAN% 0.6 % (0.0-0.5); LYMPH# 1.12 X1000 (1.2-3.4); LYMPH% 23.5 % (20.5-51.1); MCHC 32.1 g/dL (33-37); MCV 93.5 FL (81-99); MONO# 0.46 X1000 (0.11-0.59); MONO% 9.6 % (1.7-9.3); MPV 8.6 FL (7.4-10.4); NEUT# 2.84 X1000 (1.4-6.5); NEUT% 59.6 % (42.2-75.2); PLT 185 X1000 (130-400); RBC 3.97 XMIL (4.7-6.1); RDW 12.5 % (11.5-14.5); WBC 4.77 X1000 (4.8-10.8)
[2019-02-14 05:55] LABS: CALCIUM 8.3 mg/dL (8.8-10.2); CREATININE 2.2 mg/dL (0.7-1.2)
[2019-02-14] MEDS: SYNTHROID PO SCH (06:01)
[2019-02-14] MEDS: HUMALOG SUBQ SCH ×4 (06:01→21:24)
[2019-02-14] MEDS: NORCO-7.5 PO PRN ×3 (06:03→21:23)
[2019-02-14] MEDS: COREG PO SCH ×2 (09:10→21:24)
[2019-02-14] MEDS: IMDUR PO SCH (09:10)
[2019-02-14] MEDS: MIRALAX PO SCH (09:10)
[2019-02-14] MEDS: NORVASC PO SCH (09:10)
--- NOTE | 2019-02-14 19:15 | PROGRESS NOTE ---
DATE: 02/14/2019 SUBJECTIVE: Patient is doing much better and is off IV fluids. OBJECTIVE: Vital Signs: Temperature is 98 degrees, pulse 95, blood pressure is stable, and inputs and outputs -580. HEENT: Exam within normal limits. Chest: Clear. Heart: Sounds are regular. Abdomen: Belly is soft, obese. Extremities: No peripheral edema. INVESTIGATIONS: White cell count 4.7, hematocrit 37, platelets 185,000. SMA 7: BUN 35, creatinine 2.2. ASSESSMENT AND PLAN: 1. Acute kidney injury with chronic kidney disease due to bladder outlet obstruction, waiting for transurethral resection of prostate. 2. Benign prostatic hypertrophy, on Flomax and Avodart. 3. Hypertension, on Norvasc and Coreg. 4. Deep venous thrombosis prophylaxis with Lovenox. 5. Hypothyroidism, on Synthroid. 6. Type 2 diabetes, on hold on the insulin because of hypoglycemia. Currently on sliding scale with insulin coverage. Also, stopped the lisinopril due to worsening of kidney disease. 7. Will discuss with Dr. Rider about the transurethral resection of prostate. Currently stable. LEVEL OF DOCUMENTATION: 25 minutes cc: Federico Canela MD MTDD
[2019-02-14] MEDS: FLOMAX PO SCH (21:24)
[2019-02-14] MEDS: PROTONIX IV SCH (21:24)
[2019-02-14] MEDS: AVODART PO SCH (21:24)
[2019-02-14] MEDS: LOVENOX SUBQ SCH (21:30)
[2019-02-15] MEDS: SYNTHROID PO SCH ×2 (05:31→06:38)
[2019-02-15] MEDS: HUMALOG SUBQ SCH ×4 (06:39→20:55)
[2019-02-15] MEDS: MIRALAX PO SCH (08:34)
[2019-02-15] MEDS: NORVASC PO SCH (08:34)
[2019-02-15] MEDS: NORCO-7.5 PO PRN ×3 (08:34→22:05)
[2019-02-15] MEDS: COREG PO SCH ×2 (08:35→20:55)
[2019-02-15] MEDS: IMDUR PO SCH (08:35)
[2019-02-15] MEDS: PROTONIX PO SCH (20:55)
[2019-02-15] MEDS: AVODART PO SCH (20:55)
[2019-02-15] MEDS: FLOMAX PO SCH (20:55)
[2019-02-15] MEDS: LOVENOX SUBQ SCH (20:55)
--- NOTE | 2019-02-15 21:42 | PROGRESS NOTE ---
DATE: 02/15/2019 SUBJECTIVE: The patient is stable. No complaints. OBJECTIVE: On exam, temperature is 97 degrees, pulse 52. Vital signs are stable. The last intake and output is -1.9. On physical exam belly is soft, nontender. Wolff was placed. LABORATORY DATA: Urine cultures were negative. ASSESSMENT AND PLAN: 1. Acute kidney injury due to chronic kidney failure, due to bladder outlet obstruction. I am just waiting for Dr. Rider to operate based on his schedule. Family is anxious. Continue on Flomax and Avodart. 2. The rest of the problems are stable, and the patient is out of the bed. 3. Continue deep venous thrombosis prophylaxis. We will call Dr. Rider about his plans to operate, and continue present treatment. Level of documentation 15 minutes. cc: Federico Canela MD
[2019-02-16] MEDS: HUMALOG SUBQ SCH ×4 (06:00→20:31)
[2019-02-16] MEDS: SYNTHROID PO SCH (06:05)
[2019-02-16] MEDS: NORCO-7.5 PO PRN ×3 (07:10→22:10)
[2019-02-16] MEDS: MIRALAX PO SCH (09:00)
[2019-02-16] MEDS: COREG PO SCH ×2 (09:00→20:28)
[2019-02-16] MEDS: NORVASC PO SCH (09:00)
[2019-02-16] MEDS: IMDUR PO SCH (09:00)
[2019-02-16] MEDS: AVODART PO SCH (20:28)
[2019-02-16] MEDS: FLOMAX PO SCH (20:28)
[2019-02-16] MEDS: LOVENOX SUBQ SCH (20:28)
[2019-02-16] MEDS: PROTONIX PO SCH (20:28)
--- NOTE | 2019-02-16 21:56 | PROGRESS NOTE ---
DATE: 02/16/2019 SUBJECTIVE: The patient is doing better. Dr. Rider saw the patient yesterday. No complaints. OBJECTIVE: On examination, temperature is 98 degrees, pulse 53, vital signs are stable. HEENT exam within normal limits. Neck is supple. Chest is clear. Heart sounds are regular. Belly is soft, obese, nontender. Good bowel sounds. Wolff was placed. LABORATORY DATA: Urine cultures are negative. ASSESSMENT AND PLAN: Acute kidney injury on chronic renal failure due to benign prostatic hypertrophy. Dr. Rider is planning to do surgery either or Thursday. Creatinine is stable. No labs were done. We will repeat the labs on Thursday morning. Continue present treatment. Level of documentation 15 minutes. cc: Federico Canela MD
[2019-02-17] MEDS: HUMALOG SUBQ SCH ×4 (06:08→23:56)
[2019-02-17] MEDS: SYNTHROID PO SCH (06:15)
[2019-02-17] MEDS: NORVASC PO SCH (08:57)
[2019-02-17] MEDS: IMDUR PO SCH (08:57)
[2019-02-17] MEDS: MIRALAX PO SCH (08:57)
[2019-02-17] MEDS: COREG PO SCH ×2 (08:57→20:10)
[2019-02-17] MEDS ORDERED: CALMOSEPTINE OINTMENT TOP PRN (09:43)
[2019-02-17] MEDS: NORCO-7.5 PO PRN ×2 (09:56→20:10)
[2019-02-17] MEDS: AVODART PO SCH (20:10)
[2019-02-17] MEDS: FLOMAX PO SCH (20:10)
[2019-02-17] MEDS: LOVENOX SUBQ SCH (20:11)
[2019-02-17] MEDS: PROTONIX PO SCH (20:11)
--- NOTE | 2019-02-18 02:25 | PROGRESS NOTE ---
DATE: 02/17/2019 SUBJECTIVE: The patient is anxious. He is medically stable. Waiting to be done TURP by Dr. Mao Rider, and he is out of the bed. He is anxious to be done. OBJECTIVE: Vital signs: Temperature 98 degrees. Vitals are stable. General: Morbidly obese. Physical exam no change. He has a Wolff was placed. ASSESSMENT AND PLAN: 1. Acute kidney injury on chronic renal failure, currently stable. Repeat the labs in the morning. Waiting for transurethral resection of prostate. 2. Rest of his problems: Coronary artery disease, diabetes, hypertension, stable. Continue present treatment. Appreciated Dr. Rider consult, and will follow up. LEVEL OF DOCUMENTATION: 25 minutes. cc: Federico Canela MD
[2019-02-18 05:43] LABS: HEMATOCRIT 35.3 % (42.0-52.0); HEMOGLOBIN 11.1 g/dL (14.0-18.0); MCH 30.2 PG (27-31); MCHC 31.4 g/dL (33-37); MCV 95.9 FL (81-99); MPV 9.2 FL (7.4-10.4); RBC 3.68 XMIL (4.7-6.1); RDW 12.6 % (11.5-14.5); WBC 4.55 X1000 (4.8-10.8)
[2019-02-18 06:01] LABS: INR 1.06; PROTIME 14.7 Seconds (11.0-16.0)
[2019-02-18] MEDS: HUMALOG SUBQ SCH ×4 (06:12→21:04)
[2019-02-18] MEDS: SYNTHROID PO SCH (06:12)
[2019-02-18 06:18] LABS: CALCIUM 8.4 mg/dL (8.8-10.2); CREATININE 2.2 mg/dL (0.7-1.2)
[2019-02-18] MEDS: NORCO-7.5 PO PRN ×2 (07:24→18:27)
[2019-02-18] MEDS ORDERED: DIPRIVAN 1% ONE (11:41)
[2019-02-18] MEDS: COREG PO SCH ×2 (11:48→18:27)
[2019-02-18] MEDS ORDERED: KEFZOL 1 GM/D5W 2 GM/100 ML IVPB ONE (13:17)
[2019-02-18] MEDS ORDERED: GENTAMICIN 80 MG/NS 80 MG/50 ML IVPB ONE (13:18)
[2019-02-18] MEDS ORDERED: SUFENTA ONE (13:32)
[2019-02-18] MEDS ORDERED: B & O 15A SUPP ONE (14:29)
[2019-02-18] MEDS ORDERED: ROBINUL ONE (14:29)
[2019-02-18] MEDS ORDERED: DECADRON ONE (14:29)
[2019-02-18] MEDS ORDERED: ZOFRAN ONE (14:29)
[2019-02-18] MEDS ORDERED: B & O 15A SUPP PR PRN (17:38)
[2019-02-18] MEDS ORDERED: DITROPAN PO PRN (17:39)
[2019-02-18 17:51] LABS: HEMATOCRIT 40.7 % (42.0-52.0); MCH 30.1 PG (27-31); MCHC 31.9 g/dL (33-37); MCV 94.2 FL (81-99); MPV 9.1 FL (7.4-10.4); RBC 4.32 XMIL (4.7-6.1); RDW 12.5 % (11.5-14.5); WBC 5.88 X1000 (4.8-10.8)
[2019-02-18 18:09] LABS: CALCIUM 7.1 mg/dL (8.8-10.2); CREATININE 1.7 mg/dL (0.7-1.2); POTASSIUM 5.3 mmol/L (3.5-5.1)
[2019-02-18] MEDS: NS 1,000 ML IV SCH (18:27)
[2019-02-18] MEDS: NORVASC PO SCH (18:28)
[2019-02-18] MEDS ORDERED: MORPHINE IV ONE (18:47)
--- NOTE | 2019-02-18 20:13 | PROGRESS NOTE ---
DATE: 02/18/2019 SUBJECTIVE: The patient just had a TURP done. SPC was placed. Discussed with the family as well as Dr. Rider. REVIEW OF SYSTEMS: None reported. OBJECTIVE: Vital Signs: Stable. HEENT: Within normal limits. Chest: Clear. Heart: Sounds are regular. Abdomen: Belly is soft, nontender. INVESTIGATIONS: CBC: White cell count 4.5, hematocrit 35, platelets 162,000. Sodium 134, potassium 5.0, BUN 35, creatinine 2.2, glucose 209, calcium 8.4. Urine cultures were negative. ASSESSMENT AND PLAN: 1. Acute kidney injury with chronic kidney failure, stable. 2. Benign prostatic hypertrophy, and status post transurethral resection of prostate. Will follow up in the labs in the morning. 3. Gentle hydration. 4. Continue home medications. 5. Discussed the plan of care with the family. Will follow up. LEVEL OF DOCUMENTATION: 25 minutes. cc: Federico Canela MD
[2019-02-18] MEDS: MIRALAX PO SCH (21:04)
[2019-02-18] MEDS: PROTONIX PO SCH (21:05)
[2019-02-18] MEDS: IMDUR PO SCH (21:05)
[2019-02-18] MEDS: KEFZOL 1 GM/D5W 1 GM/50 ML IVPB IV SCH (21:10)
--- NOTE | 2019-02-18 21:55 | OPERATIVE NOTE ---
PROCEDURE DATE: 02/18/2019 SURGEON: Víctor Rider MD. PREOPERATIVE DIAGNOSIS: Markedly enlarged prostate with urinary retention. POSTOPERATIVE DIAGNOSIS: Markedly enlarged prostate with urinary retention. PROCEDURE PERFORMED: 1. Cystoscopic exam. 2. Transurethral resection of the prostate. 3. Placement of a suprapubic tube. ANESTHESIA: General via laryngeal mask. FINDINGS: Cystoscopic exam: Urethra-greater than 28-Bulgarian without stricture. Prostate-coapting lateral lobes, elevated bladder neck, length approximately 7 cm. Bladder-normal ureteral orifices bilaterally. Grade 3 trabeculations with small cellules and diverticula throughout. No papillary lesions. There is bullous edema on the trigone and posterior wall consistent with the indwelling Wolff catheter. Rectal exam revealed a prostate of greater than 80 g, smooth and symmetric. INDICATION FOR PROCEDURE: This 78-year-old male has a long history of enlarged prostate with obstructive voiding. He developed urinary retention and has had a Wolff catheter in place. He has had voiding trials without success. DESCRIPTION OF PROCEDURE: After informed consent was obtained from the patient and family and him receiving IV antibiotics, he was taken the main OR cystoscopy room, placed in the supine position. General anesthesia via laryngeal mask was achieved. He was then placed in a low lithotomy position and prepped and draped in the usual sterile fashion for cystoscopic exam and lower abdominal surgery. A 21-Bulgarian sheath cystoscope was passed the patient's urethra, prostate, and bladder findings noted above. The bladder was distended. The cystoscope was removed. The 28- Bulgarian continuous flow resectoscope sheath was placed. The thick Gyrus loop electrode was placed. The machine was set at 100 coag, 200 cut and the resection was started 6 o'clock position, going from the level of bladder neck, level of the verumontanum in steps. The prostatic urethra was too long to be able to resect with 1 swipe. The resection was started 6 o'clock position, going to the mid prostate. We then proceeded in a counterclockwise direction up to the 2 o'clock position. Resection was then started back at the 6 o'clock position, going from the level of bladder neck to the midprostate proceeding in a clockwise direction up to the 10 o'clock position. The resection was then carried all the way down to the verumontanum from the midprostate to the level of the verumontanum, proceeding in a counterclockwise direction up to about 10 o'clock position and then from the level of the midprostate, level of the verumontanum, proceeding in a clockwise direction to the 10 o'clock position. He had very large lateral lobes and the distal part of these were then taken down. The tissue from the anterior prostatic urethra was removed between the 10 o'clock and 2 o'clock positions the level of bladder neck, level of the verumontanum without difficulty. The chips were removed from the bladder with Ellik evacuators. This had to be done several times during the resection. Hemostasis was achieved with electrocautery. At completion, both ureteral orifices were intact. The bladder neck was incised at the 6 o'clock position. The bladder was left distended and a stab incision was made 2 fingerbreadths above the pubic bone in the midline. The Aurelio suprapubic tube introducer was pushed through the stab incision and into the bladder under direct vision. The trocar was removed. A 16-Bulgarian Wolff catheter was passed through the sheath. The balloon was inflated under direct vision. The sheath was removed. The suprapubic tube irrigated without difficulty and was then plugged. It was sutured to the skin with 0 silk. Gauze dressing with paper tape was placed. A 24-Bulgarian, 3-way Wolff catheter was passed through the patient's urethra, prostate, and into the bladder. 40 mL sterile water were placed in the Wolff balloon. The Wolff was placed to gravity drain. The efflux was pink. Continuous bladder irrigation was started and it became very light pink. He tolerated the procedure well. Estimated blood loss 400 mL. The prostate chips were sent to Pathology. A rectal exam was performed and a 16-A B and O suppository was placed. He was taken to the recovery room in good condition. cc: MD Fedeirco Silverman MD
[2019-02-19] MEDS: COREG PO SCH ×3 (00:43→20:22)
[2019-02-19] MEDS: NORCO-7.5 PO PRN ×3 (04:22→21:51)
[2019-02-19] MEDS: KEFZOL 1 GM/D5W 1 GM/50 ML IVPB IV SCH ×2 (05:25→13:19)
[2019-02-19] MEDS: HUMALOG SUBQ SCH ×4 (06:17→20:28)
[2019-02-19] MEDS: SYNTHROID PO SCH (06:22)
[2019-02-19] MEDS: MIRALAX PO SCH (08:12)
[2019-02-19] MEDS: NORVASC PO SCH (08:13)
[2019-02-19] MEDS: NS 1,000 ML IV SCH ×2 (08:14→20:22)
[2019-02-19] MEDS: TYLENOL PO PRN ×2 (08:14→16:53)
[2019-02-19] MEDS: IMDUR PO SCH (08:14)
--- NOTE | 2019-02-19 20:21 | PROGRESS NOTE ---
DATE: 02/19/2019 SUBJECTIVE: The patient is out of bed. I appreciate Dr. Rider' efforts and management.. Wolff was out. The patient has been with SPC catheter, draining some blood. Encouraged to drink a lot of fluids. OBJECTIVE: On exam, temperature is 98 degrees, pulse is 57, blood pressure is 120/55. HEENT exam within normal limits. Chest is clear. Heart sounds are regular. Belly is soft, nontender. LABORATORY DATA: CBC: White cell count 5.8, hematocrit 40, platelets 164,000. BUN 29, creatinine 1.7, calcium 7.1. ASSESSMENT AND PLAN: 1. Postoperative day 1, benign prostatic hypertrophy, transurethral resection of the prostate. Suprapubic catheter. Check the labs in the morning. Out of the bed. Pain is adequately controlled. The patient is not comfortable to go home about voiding trials, and Dr. Rider recommended to go home tomorrow with suprapubic catheter and follow up in his office on Thursday. He would rather stay here until Thursday and get the tube out after voiding trial. We will discuss with Dr. Rider. Continue present treatment. 2. Sinus bradycardia, on beta-blockers. Continue to monitor on telemetry. Currently asymptomatic. 3. Continue on intravenous fluids. Increase ambulation, incentive spirometry and check the labs. Level of documentation 25 minutes. cc: Federico Canela MD MTDD
[2019-02-19] MEDS: PROTONIX PO SCH (20:22)
[2019-02-20 06:08] LABS: BASO# 0.02 X1000 (0.0-0.2); BASO% 0.3 % (0.0-0.8); EOS# 0.26 X1000 (0.0-0.7); EOS% 3.6 % (0.0-10.0); HEMATOCRIT 32.9 % (42.0-52.0); HEMOGLOBIN 10.2 g/dL (14.0-18.0); IMM GRAN# 0.02 X1000 (0.0-0.04); IMM GRAN% 0.3 % (0.0-0.5); LYMPH# 1.13 X1000 (1.2-3.4); LYMPH% 15.6 % (20.5-51.1); MCH 29.5 PG (27-31); MCV 95.1 FL (81-99); MONO# 0.49 X1000 (0.11-0.59); MONO% 6.8 % (1.7-9.3); MPV 9.4 FL (7.4-10.4); NEUT# 5.31 X1000 (1.4-6.5); NEUT% 73.4 % (42.2-75.2); PLT 191 X1000 (130-400); RBC 3.46 XMIL (4.7-6.1); RDW 12.6 % (11.5-14.5); WBC 7.23 X1000 (4.8-10.8)
[2019-02-20] MEDS: HUMALOG SUBQ SCH ×4 (06:25→21:59)
[2019-02-20] MEDS: SYNTHROID PO SCH (06:39)
[2019-02-20 06:51] LABS: AGAP 8; ALB/GLOB RATIO 1.1; ALBUMIN 2.8 g/dL (3.5-5.0); ALKALINE PHOSPHATASE 80 U/L (32-122); BUN 34 mg/dL (8-22); CALCIUM 7.8 mg/dL (8.8-10.2); CHLORIDE 104 mmol/L (98-107); COSMO 277; CREATININE 2.2 mg/dL (0.7-1.2); ESTIMATED GFR 29; GLUCOSE 189 mg/dL (70-104); GOT 8 U/L (10-34); GPT < 5 U/L (10-44); POTASSIUM 5.1 mmol/L (3.5-5.1); SODIUM 132 mmol/L (136-145); TCO2 20 mmol/L (25-35); TOTAL PROTEIN 5.3 g/dL (6.3-8.3)
[2019-02-20] MEDS: IMDUR PO SCH (08:28)
[2019-02-20] MEDS: NORVASC PO SCH (08:28)
[2019-02-20] MEDS: MIRALAX PO SCH (08:28)
[2019-02-20] MEDS: COREG PO SCH ×2 (08:28→21:59)
[2019-02-20] MEDS: NORCO-7.5 PO PRN ×3 (08:34→21:58)
[2019-02-20] MEDS: NS 1,000 ML IV SCH ×2 (09:31→23:40)
--- NOTE | 2019-02-20 14:23 | PROGRESS NOTE ---
DATE: 02/20/2019 SUBJECT: The patient is out of the bed, comfortable. Wolff was out. SPC catheter some blood. He is drinking fluids very well. No complaints. EXAM: Temperature is 98 degrees, pulse 57, blood pressure 154/64, 95% room air.Chest: Clear. Heart: Sounds are regular. Belly: Is soft, nontender. LABS: CBC. White cell count 7.2, hematocrit 32, platelets 191,000. Sodium 132, potassium 5.1, BUN 34, creatinine 2.2. ASSESSMENT AND PLAN: 1. Chronic kidney disease stable. 2. Benign prostatic hypertrophy status post transurethral resection of prostate. 3. Status post suprapubic catheter catheter. 4. Hypertension on Norvasc 2.5 and Coreg 12.5 b.i.d. 5. Coronary artery disease and isosorbide, aspirin, Coreg . 6. Hypothyroid on Synthroid and patient wants to go home on Thursday morning and then go straight to Dr. Rider' office for bladder voiding trials. Follow up on TURP biopsy report. Continue out of the bed with physical therapy. LEVEL DOCUMENTATION: 25 minutes. cc: Federico Canela MD
[2019-02-20] MEDS: PROTONIX PO SCH (21:59)
[2019-02-21] MEDS: SYNTHROID PO SCH (06:22)
[2019-02-21] MEDS: NORCO-7.5 PO PRN ×3 (06:22→22:01)
[2019-02-21] MEDS: HUMALOG SUBQ SCH ×4 (06:25→21:01)
[2019-02-21] MEDS: MIRALAX PO SCH (08:29)
[2019-02-21] MEDS: ASPIRIN EC PO SCH (08:29)
[2019-02-21] MEDS: COREG PO SCH ×2 (08:29→21:00)
[2019-02-21] MEDS: IMDUR PO SCH (08:29)
[2019-02-21] MEDS: NORVASC PO SCH (08:29)
--- NOTE | 2019-02-21 10:44 | PROGRESS NOTE ---
DATE: 02/21/2019 Mr. Maxwell is recovering after the surgery for TURP. He has BPH. He has chronic kidney disease. He is alert, oriented. Vital signs are stable. Blood pressure was 166/68. He is hypertensive. Blood sugar this morning was 197 and overall condition is stable. cc: MD Federico Godwin MD
[2019-02-21] MEDS: NS 1,000 ML IV SCH (12:13)
[2019-02-21] MEDS: PROTONIX PO SCH (21:00)
[2019-02-22] MEDS: NS 1,000 ML IV SCH (01:00)
[2019-02-22] MEDS: SYNTHROID PO SCH ×2 (05:46→06:14)
[2019-02-22] MEDS: HUMALOG SUBQ SCH (06:14)
[2019-02-22 07:45] VITALS: BP 174/69
[2019-02-22] MEDS: COREG PO SCH (08:19)
[2019-02-22] MEDS: MIRALAX PO SCH (08:19)
[2019-02-22] MEDS: IMDUR PO SCH (08:19)
[2019-02-22] MEDS: NORVASC PO SCH (08:19)
[2019-02-22] MEDS: ASPIRIN EC PO SCH (08:19)
--- NOTE | 2019-02-24 03:23 | DISCHARGE SUMMARY ---
ADMISSION DATE: 02/07/2019 DISCHARGE DATE: 02/22/2019 DISCHARGING DIAGNOSES: 1. Altered mental status due to metabolic encephalopathy due to hypoglycemia. 2. Acute kidney failure with chronic renal insufficiency due to bladder outlet obstruction. 3. Abnormal electrocardiogram with a right bundle branch block. 4. Allergic rhinitis. 5. Diastolic heart failure. 6. Chronic kidney disease-creatinine baseline is 2.2. 7. Coronary artery disease with a stent in the left anterior descending, stable. 8. Type 2 diabetes. 9. Tobacco abuse. 10. Hypertension,. 11. Hypothyroidism. CONSULTATIONS: Dr. Rider. PROCEDURES: 1. On 02/10/2019, cystoscopy, clot irrigation fulgurate bleeding areas at the bladder neck, bilateral retrograde pyelogram placing the Wolff catheter. 2. On 02/18/2019, cystoscopy followed by transurethral resection of the prostate and placement of suprapubic tube. 3. Renal ultrasound on 02/07/2019, markedly enlarged prostate. Bladder was distended to [address] head no hemorrhage, atrophy with chronic microvascular ischemic changes. 5. Chest x-ray, cardiomegaly. BRIEF HISTORY/HOSPITAL COURSE: Please see the H and P that was done on 02/07/2019. In brief, he is an 78-year-old white male recently discharged from the hospital for a bladder outlet obstruction and sent home on Flomax and finasteride and his prostate was [address] scan[address] Rider is going to do as an outpatient with a Wolff catheter. He was brought in 3 days later with altered mental status, confusion, low blood sugar, worsening of the kidney function tests, creatinine 5.2. Wolff was in place, unfortunately it was dislodged. It was not draining and bladder scan showed 1125 mL. The patient got reinserted Wolff and started having voiding and slowly improving the renal function test. Urology consultation was obtained. The patient is going to benefit by doing surgery rather than medical treatment. During this hospital course she was in [facility] with the following problems: 1. For initial hypoglycemia insulin was stopped, the patient was given D5 half-normal saline. 2. After reinserting the Wolff, the patient had a cystoscopy and stopped the fulguratiion of the bleeding points, and also he has a huge prostate and Dr. Rider recommended TURP once he is hemodynamically stable. His renal function test came back to the baseline. He is less edematous. Creatinine is 2.2. Subsequently, Dr. Rider did TURP with SPC catheter. The patient initially was given Luciano's drip. Wolff was discontinued. The patient was sent home in a stable condition directly from the hospital to his office for voiding trials. Rest of the hospital course was uneventful. DISCHARGE LABORATORIES: CBC: White cell count 7.2, hematocrit 32.9, platelets 191,000. SMA-7: Sodium 132, potassium 5.1, BUN 34, creatinine 2.2, glucose 214. DISCHARGE INSTRUCTIONS: As follows: 1. Continue SPC catheter and voiding trial as per Dr. Rider, and will stop the lisinopril. Synthroid 50 mcg daily. We will give him insulin Levemir 35 units subcutaneously in the morning, aspirin 81 mg daily, isosorbide 30 mg daily, amlodipine 2.5 daily, Coreg 12.5 p.o. b.i.d. continue Avodart 0.5 at bedtime, MiraLAX 17 g daily. Ultracet for p.r.n. pain. I stopped the lisinopril. I stopped the Flomax. I stopped the Levemir at bedtime and I also stop the glipizide. 2. Follow up in my office in 2 weeks. cc: MD Víctor Christensen MD
== END 2019-02-22 10:00 | disposition home or self-care (01) | DRG 662 ==
LOC: SUPCPDRO → ED 12:22 → EDIPHOLD 12:23 → 3S 17:13
PROVIDERS: ADMIT Internal Medicine; ATTEND Internal Medicine
PROC: UR.TURP (2019-02-18 13:24)
CPT/HCPCS: 70450; 71010; 71045; 74420; 76770; 80048; 80053; 81001; 82948; 83880; 84484; 85025; 85027; 85610; 87088; 88305; 93005; 94761; 94799; 97110; 97162; 97530; 99285; A9270; C9113; J0690; J1100; J1580; J1650; J1815; J2270; J2405; J7030; Q9966; Q9967; S0164; XXXXX

== ENCOUNTER 2019-04-14 14:06 | Inpatient (IN) ==
[2019-04-14 15:42] LABS: HEMATOCRIT 38.9 % (42.0-52.0); HEMOGLOBIN 11.8 g/dL (14.0-18.0); MCH 30.3 PG (27-31); MCHC 30.3 g/dL (33-37); MPV 9.8 FL (7.4-10.4); RBC 3.89 XMIL (4.7-6.1); RDW 17.1 % (11.5-14.5); WBC 5.39 X1000 (4.8-10.8)
[2019-04-14 16:06] LABS: ESTIMATED GFR 14
[2019-04-14 16:11] LABS: AGAP 18; BUN 83 mg/dL (8-22); CHLORIDE 107 mmol/L (98-107); CK PROFILE 49 U/L (24-204); COSMO 299; CREATININE 4.2 mg/dL (0.7-1.2); DIGOXIN < 0.3 ng/mL (0.9-2.0); GLUCOSE 163 mg/dL (70-104); POTASSIUM 5.8 mmol/L (3.5-5.1); SODIUM 135 mmol/L (136-145); TCO2 10 mmol/L (25-35)
--- NOTE | 2019-04-14 18:14 | Diag Imaging Result Doc PS360 ---
EXAM: US RENAL 2 (RETROPER) COMPLETE - 04/14/2019 HISTORY: hong/arf TECHNIQUE: Bilateral renal ultrasound COMPARISON: 02/07/2019 FINDINGS: There are artifacts from the patient's body habitus which limit detail. The right kidney measures 10.9 x 5.1 x 6.2 cm in size, with cortical thickness of approximately 1.1 cm. The left kidney measures 10.9 x 4.5 x 6.2 cm in size, with cortical thickness of approximately 1 cm. There apparently a couple left renal cysts, the largest of which measures approximately 6 cm. There is no discrete solid renal mass, stone, or hydronephrosis identified. The urinary bladder is not visualized. IMPRESSION: Left renal cysts. No other discrete abnormality. Electronically signed by Alfredo Alejandro 04/14/2019 6:11 PM
[2019-04-14] MEDS: HUMULIN R SUBQ SCH ×2 (18:17→23:00)
[2019-04-14] MEDS ORDERED: KAYEXALATE PO ONE (19:14)
--- NOTE | 2019-04-14 19:53 | Diag Imaging Result Doc PS360 ---
EXAM: CHEST-PORTABLE - 04/14/2019 HISTORY: CHF,Afib TECHNIQUE: Portable chest COMPARISON: 02/07/2019 FINDINGS: Inspiration is deeper compared to prior. There is cardiomegaly similar to prior. The lungs appear grossly clear. There is no substantial vascular congestion identified. There is a possible small left pleural effusion. There is no pneumothorax identified. IMPRESSION: Cardiomegaly. Possible small left pleural effusion. Electronically signed by Alfredo Alejandro 04/14/2019 7:50 PM
[2019-04-14] MEDS: AVODART PO SCH (20:00)
[2019-04-14 21:01] LABS: FREE T4 0.78 ng/dL (0.93-1.70); TSH 3.06 uIUmL (0.27-4.20)
--- NOTE | 2019-04-14 21:18 | HISTORY AND PHYSICAL ---
CHIEF COMPLAINT: Shortness of breath and exertion for the last 10 days. HISTORY OF PRESENT ILLNESS: He is an 79-year-old white male with a known history of diastolic heart failure, ischemic heart disease, chronic kidney disease, baseline creatinine 2.2. Had a stent in the LAD. Basically was evaluated in my office since 2 days ago with above symptoms. He was doing very well since last hospitalization. He had BPH with acute renal failure with underlying chronic renal insufficiency. Dr. Rider did a prostatectomy followed by SPC catheter. He has discontinued SPC catheter. Since then, his creatinine came back 2.0. He was doing well until a few days ago with shortness of breath. Yesterday in my office, laboratory workup showed creatinine is going up to 3.6; today it is 4.8. She has echocardiography that showed decreased LV function. Chest x-ray: Cardiomegaly with mild CHF. He was seen before by Dr. Moss. panel monitor showing atrial fib with secondary pauses and right bundle branch block. Dr. Moss was consulted and Dr. Calderón is on-call. He was admitted in [facility] for acute kidney failure and cardiomegaly with atrial fibrillation. Family was at bedside. As a result, a hospital admission was warranted. PAST MEDICAL HISTORY: 1. Underlying right bundle branch block. 2. Chronic diastolic failure. 3. Chronic renal failure. Baseline creatinine is 2. 4. BPH, status post TURP. 5. Allergy rhinitis. 6. CAD, stent in the LAD. 7. Type 2 diabetes. 8. History of tobacco abuse. 9. Hypertension. 10. Hypothyroidism. PAST SURGICAL HISTORY: 1. C-spine C5-C6 fusion. 2. Bilateral cataract surgery. 3. Umbilical hernia repair. 4. Laparoscopic cholecystectomy. 5. Stent in the LAD. 6. TURP [address] Rider, followed by SPC catheter. 7. Excision of the moles, melanoma in situ, left upper back. ALLERGIES: Reported to hydromorphone. SOCIAL HISTORY: for 56 years. Three children. Lives in [place]. No smoking. No alcohol. FAMILY HISTORY: Father , cause was not known. Mom with heart failure. HEALTH MAINTENANCE: Flu vaccine in 2018. Pneumococcal vaccine in 2005. Colonoscopy in 2019. Eye exam in [address] Cottrell. MEDICATIONS: 1. Levothroid 50 mcg daily. 2. Levemir 35 units in the morning. 3. Aspirin 81 mg daily. 4. Isosorbide 30 daily. 5. Amlodipine 12.5 daily. 6. Coreg 12.5 p.o. b.i.d. 7. Avodart 0.5 at bedtime. 8. Tramadol with Tylenol 1 tablet q.6. 9. MiraLAX 17 g daily. REVIEW OF SYSTEMS: HEENT: No headache. No vision problem. No earache. No sore throat. Cardiopulmonary: Shortness of breath. No chest pain or exertional worsening with exertion. No syncope. No PND. No orthopnea. No swelling of feet. GI: No upper abdominal cramping and no nausea, vomiting, abdominal pain. : No history of hesitancy, frequency, dysuria. No swelling of feet. Neurological: No neurological symptoms or weakness. PHYSICAL EXAMINATION: VITAL SIGNS: Temperature is 98 degrees, pulse is 54, blood pressure is 134/60, oxygen saturation 96% on room air, 2 L. HEENT: Atraumatic, normocephalic. Pupils equal, react to light. TMs are normal. Nose and throat within normal limits. NECK: Supple. No lymphadenopathy. CHEST: Bilateral air entry. HEART: Irregular heart sounds. ABDOMEN: Belly is soft, obese, nontender. RECTAL: Prostate is decreased in size. Heme-negative stools. EXTREMITIES: No peripheral edema, cyanosis. NEUROLOGIC: No obvious neurological deficits. INVESTIGATIONS: CBC: White cell count 5.3, hematocrit 38.8, MCV is high, platelet 152,000. Sodium 135, potassium 5.2, BUN 83, creatinine 4.2, glucose 163. CK was normal. Troponin was normal. ProBNP 13,000. Digoxin 0.3. Chest x-ray: Cardiomegaly. Prior C-spine surgery changes. ASSESSMENT AND PLAN: 1. 79-year-old white gentleman admitted to the hospital basically with shortness of breath on exertion, with right bundle, chronic diastolic failure with ischemic heart disease, elevated proBNP, cardiomegaly. Plan is secured entrance monitor. Discontinue Coreg. Dr. Calderón consulted for Dr. Moss. 2. Chronic kidney disease, worsening. Bladder scan is -67 mL. This could be congestive heart failure. Consult with Dr. Sarmiento. 3. Status post transurethral resection of prostate by Dr. Rider. Biopsy was negative for malignancy. Discontinued suprapubic catheter. 4. Ischemic heart disease. Continue on aspirin, isosorbide. 5. Hypertension, on amlodipine. 6. Type 2 diabetes. Discontinue Levemir. Continue on sliding scale with insulin coverage. 7. Constipation, on MiraLax. 8. Hypothyroidism, on Synthroid. 9. Chronic pain, on Ultracet. 10. We will also get cardiac enzymes, magnesium, and free T4. 11. The last echocardiography was done 02/01/2019, reported by Dr. Calderón an ejection fraction of 60%, diastolic dysfunction. 12. Will follow up. cc: Federico Canela MD
[2019-04-14] MEDS: ULTRACET 37.5MG/325MG PO PRN (23:03)
[2019-04-15] MEDS: SYNTHROID PO SCH ×2 (05:05→06:16)
[2019-04-15] MEDS: ULTRACET 37.5MG/325MG PO PRN (05:05)
[2019-04-15 05:46] LABS: BASO# 0.02 X1000 (0.0-0.2); BASO% 0.4 % (0.0-0.8); EOS# 0.15 X1000 (0.0-0.7); EOS% 2.9 % (0.0-10.0); HEMATOCRIT 37.2 % (42.0-52.0); HEMOGLOBIN 11.3 g/dL (14.0-18.0); IMM GRAN# 0.03 X1000 (0.0-0.04); IMM GRAN% 0.6 % (0.0-0.5); LYMPH% 23.5 % (20.5-51.1); MCH 29.7 PG (27-31); MCHC 30.4 g/dL (33-37); MCV 97.9 FL (81-99); MONO# 0.37 X1000 (0.11-0.59); MONO% 7.2 % (1.7-9.3); MPV 9.8 FL (7.4-10.4); NEUT# 3.34 X1000 (1.4-6.5); NEUT% 65.4 % (42.2-75.2); PLT 165 X1000 (130-400); RDW 17.1 % (11.5-14.5); WBC 5.11 X1000 (4.8-10.8)
[2019-04-15 06:19] LABS: CALCIUM 8.8 mg/dL (8.8-10.2); CREATININE 3.7 mg/dL (0.7-1.2); POTASSIUM 5.5 mmol/L (3.5-5.1)
[2019-04-15] MEDS: HUMULIN R SUBQ SCH ×4 (06:29→20:52)
--- NOTE | 2019-04-15 07:07 | EKG Report ---
Test Performed on : 04/15/2019 06:21:19 AM Test Reason : cp Blood Pressure : / mmHG Vent. Rate : 065 BPM Atrial Rate : 065 BPM P-R Int : 292 ms QRS Dur : 148 ms QT Int : 452 ms P-R-T Axes : 055 -46 104 degrees QTc Int : 470 ms Sinus rhythm. with 1st degree AV block. with frequent premature ventricular complexes. in a pattern o f bigeminy. Left axis deviation Right bundle branch block Septal infarct (cited on or before 19-JUL-2014) T wave abnormality, consider lateral ischemia Abnormal ECG When compared with ECG of 14-APR-2019 18:48, (Unconfirmed) Sinus rhythm. has replaced Atrial fibrillation. Criteria for Inferior infarct are no longer present Questionable change in initial forces of Anterolateral leads T wave inversion now evident in Lateral leads Confirmed by Esteban Crews MD ([id number]) on 04/17/2019 8:23:49 PM
[2019-04-15] MEDS: IMDUR PO SCH (08:02)
[2019-04-15] MEDS: NORVASC PO SCH (08:02)
[2019-04-15] MEDS: ASPIRIN EC PO SCH (08:02)
[2019-04-15] MEDS: MIRALAX PO SCH (08:03)
--- NOTE | 2019-04-15 08:33 | EKG Report ---
Test Performed on : 04/14/2019 6:48:07 PM Test Reason : Bradycardia Blood Pressure : / mmHG Vent. Rate : 082 BPM Atrial Rate : 085 BPM P-R Int : 000 ms QRS Dur : 162 ms QT Int : 406 ms P-R-T Axes : 000 213 013 degrees QTc Int : 474 ms Atrial fibrillation. with premature ventricular or aberrantly conducted complexes. and with ventricul ar escape complexes. Right bundle branch block Inferior infarct , age undetermined Anterolateral infarct , age undetermined Abnormal ECG When compared with ECG of 07-FEB-2019 14:39, Atrial fibrillation. has replaced Wide QRS rhythm. Criterial for inferior, anterior, and lateral infarct is now present. Confirmed by Esteban Crews MD ([id number]) on 04/17/2019 8:21:13 PM
[2019-04-15] MEDS: SODIUM BICARBONATE PO SCH ×2 (11:04→20:30)
--- NOTE | 2019-04-15 16:21 | ECHO REPORT ---
ORDER DATE: 04/15/2019 ECHOCARDIOGRAPHIC MEASUREMENTS: 1. Interventricular septum 1.2. 2. Left ventricular posterior wall 1.2. 3. Diastolic diameter 5.6. 4. Left atrium 4.4. 5. Aorta 4. SUMMARY: 1. Ascending aorta mildly dilated. 2. Tricuspid valve was normal. 3. Pulmonic valve was normal. 4. Aortic valve leaflets were trileaflet. 5. Atrial fibrillation noted. 6. Mitral valve was normal. 7. There is moderate mitral annular calcification. 8. There is left atrial enlargement. 9. There is mild mitral regurgitation. 10. Mild tricuspid regurgitation. 11. Peak velocity across the tricuspid valve was 2.7 m/sec. 12. Pulmonary artery systolic pressure 40 mmHg. 13. Peak velocity across the aortic valve was less than 2 m/sec. 14. There is no aortic stenosis. 15. There is mild aortic regurgitation. 16. Normal left ventricular cavity size. 17. There is inferior wall hypokinesis. 18. Estimated ejection fraction of 50 to 55%. 19. There was posterior pericardial effusion small, there is no evidence of tamponade. 20. There is no obvious intracardiac mass or thrombus. cc: MD Michelle Mathis PA Jagan Reddy, MD
--- NOTE | 2019-04-15 16:28 | NEPHROLOGY CONSULTATION ---
DATE: 04/15/2019 REASON FOR CONSULTATION: Acute kidney injury with overlying chronic kidney disease. HISTORY OF PRESENT ILLNESS: Mr. Maxwell is an 79-year-old white male with known chronic kidney disease and baseline creatinine of about 2 to 2.5. He underwent prostatectomy in January and since that time, he has had problems with urine leakage and progressively worsening functional status with weakness and shortness of breath with exertion. These things have been progressively worse though he does not particularly have nocturnal symptoms. Minimal lower extremity swelling. In this context, he has been admitted to the hospital because of his decompensated heart failure presumed. In this context, his creatinine was elevated above baseline at 4.2. Repeat today is 3.7. His appetite is not good. He states he becomes full after just a couple bites. No vomiting, though, he does feel like vomiting and he describes chest pressure when he eats. PAST MEDICAL HISTORY: Congestive heart failure, coronary disease, right bundle branch block. BPH status post TURP, diabetes, hypertension, obesity, hypothyroidism. HOME MEDICATIONS: Include levothyroxine, insulin, aspirin, isosorbide, amlodipine, carvedilol, dutasteride, polyethylene glycol, tramadol. ALLERGIES: Hydromorphone. SOCIAL HISTORY: , lives with his . Continues to smoke a pipe occasionally. No alcohol. FAMILY HISTORY: Otherwise noncontributory. REVIEW OF SYSTEMS: Otherwise noncontributory. PHYSICAL EXAMINATION: Vital Signs: Blood pressure 137/56, heart rate 60, respiration 18, afebrile. General: Obese white male, lying in bed. No acute distress. Skin: Warm and dry. Pale. Pupils are equal. Oropharynx is clear. Neck: Supple. Trachea is midline. Neck vein distention is present with hepatojugular reflux. Heart: PMI is not palpable. Heart: Rate is distant and irregular. Lungs: Have equal breath sounds. No crackles. Abdomen: Soft, nontender. Bowel sounds present. Extremities: Trace edema. No clubbing or cyanosis. IMPRESSION: Acute kidney injury overlying chronic kidney disease. Presumed secondary to decompensated heart failure. Creatinine is improving with treatment. He does have metabolic acidosis that is somewhat chronic though worse than his baseline. Slightly improved today. This may certainly impacted shortness of breath as well as sodium bicarbonate. cc: MD Federico Ashley MD
--- NOTE | 2019-04-15 19:16 | CARDIOLOGY CONSULTATION ---
DATE: 04/15/2019 CHIEF COMPLAINT ON PRESENTATION: Was apparently and shortness of breath, fatigue. HISTORY OF PRESENT ILLNESS: Mr. Maxwell is an 79-year-old male with a history of diastolic heart failure, coronary disease who apparently for the last couple of weeks has been dealing with increased fatigue, weakness and dyspnea on exertion. In addition, he has at times noted some heaviness in his chest. This would generally occur with minimal activity like walking across a room. He denies any overt fevers. He sounds like over the last few months he has been dealing with some prostate issues and was in the hospital back in January. He was seen over at Dr. Canela's office and his creatinine was up in the high 4s and was subsequently referred over to the hospital. PAST MEDICAL HISTORY: 1. Significant for coronary disease with history of PCI. His last nuclear scan was in November 2016 that demonstrated a large size defect in the apex, mid anterior septum, basal anterior septum portions of the anterior wall that was fixed EF of 42% on that study. His last catheterization was in 2013 showing a normal left main. He had a 80 to 90 percent stenosis in the proximal age of the stent in the proximal LAD. This was treated with a drug-eluting stent in [place]. The circumflex had mild luminal irregularities with a patent marginal stent, RCA had a proximal occlusion. 2. Diastolic heart failure. 3. Right bundle branch block. 4. Hypertension. 5. Hyperlipidemia. 6. Diabetes. 7. Tobacco abuse. 8. Hypothyroidism. 9. Chronic kidney disease. SOCIAL HISTORY: He is , 3 children. Lives in [place]. No smoking. FAMILY HISTORY: Father of unknown causes. Mother with heart failure. REVIEW OF SYSTEMS: A 10 system review of systems is negative except for those mentioned in HPI. PHYSICAL EXAMINATION: Vital Signs: He is afebrile. His heart rate is 60, his blood pressure is 137/56. General: He is in no acute distress. HEENT: Oropharynx moist. Poor dentition. Eye examination shows pink conjunctivae, white sclerae. Neck: Shows no obvious thyromegaly or thyroid tenderness. Cardiovascular: He is in an irregular rate and rhythm. He has no obvious murmurs. He has no lower extremity edema. His telemetry demonstrates bigeminal PVCs with a sinus mechanism. Chest: Relatively clear. He has no increased work of breathing. Abdomen: Soft, nontender, nondistended. He has no obvious organomegaly. Skin: Warm and dry throughout. PERTINENT DATA: He had a renal ultrasound showing a left renal cyst. He had a chest x-ray demonstrating cardiomegaly with a possible small pleural effusion. His EKG demonstrated on presentation what appeared to be sinus mechanism, multiple PVCs identified. He does appear to have fairly clear to identify P waves on this study. His subsequent EKG was at 6:21 this morning that shows sinus rhythm, bigeminal PVCs. His laboratory data shows a white count of 5.1, his hematocrit is 37, his platelet count is 165,000. His sodium is 139, potassium 5.5. Yesterday his creatinine was 4.2, today it is 3.7. His last creatinine on file here was 2.2 in January. His cardiac enzymes are negative. His proBNP on the was 13,000, his digitalis level was less than 0.3. Notably I do not have record of him being on digoxin per our office. ASSESSMENT: Mr. Maxwell is an 79-year-old gentleman who presents with complaints of just diffuse weakness, shortness of breath. PLAN: He has negative cardiac enzymes. His EKG is not clearly showing any signs of ischemia. We will check a limited echocardiogram. He had a normal ejection fraction back in January. For now, no acute medication changes currently. cc: MD Federico Blackburn MD
[2019-04-15] MEDS: AVODART PO SCH (20:30)
--- NOTE | 2019-04-15 20:30 | PROGRESS NOTE ---
DATE: 04/15/2019 SUBJECTIVE: The patient is a little better, still exertional shortness of breath, chest pain, underlying ischemic heart disease, waiting to be seen by top former. He was seen before by Dr. Moss and Dr. López. His vehicle monitor technician is right bundle with PVCs and compensated pause. OBJECTIVE: Vital Signs: Temperature is 97 degrees. Vitals are stable. HEENT: Within normal limits. Chest: Clear. Heart: Sounds are very irregular. Abdomen: Belly is soft, nontender. SPC catheter was removed. LABS: White cell count 5.1, hematocrit 37, platelets 165,000. BUN 87, creatinine 3.7. Cardiac enzymes are normal. TSH is normal. Digoxin level 0.3. ASSESSMENT AND PLAN: 1. Acute kidney failure with chronic kidney disease. No bladder outlet obstruction noted. No hydronephrosis, most likely forward failure from this congestive heart failure. 2. Congestive heart failure. 3. Decreased left ventricular function. 4. History of ischemic heart disease. 5. Type 2 diabetes. I appreciated consultants by Dr. Sarmiento and Dr. Calderón. Continue to monitor in telemetry. Patient needs his cardiac workup. We will follow up the recommendations by Dr. Moss and Dr. Calderón. Discussed with the family at bedside. LEVEL OF DOCUMENTATION: 25 minutes. cc: Federico Canela MD
[2019-04-16] MEDS: SYNTHROID PO SCH (05:59)
[2019-04-16 06:24] LABS: BASO# 0.03 X1000 (0.0-0.2); BASO% 0.6 % (0.0-0.8); EOS# 0.24 X1000 (0.0-0.7); EOS% 4.6 % (0.0-10.0); HEMATOCRIT 37.2 % (42.0-52.0); HEMOGLOBIN 11.3 g/dL (14.0-18.0); LYMPH% 22.9 % (20.5-51.1); MCH 29.7 PG (27-31); MCHC 30.4 g/dL (33-37); MCV 97.6 FL (81-99); MONO# 0.48 X1000 (0.11-0.59); MONO% 9.2 % (1.7-9.3); MPV 9.5 FL (7.4-10.4); NEUT# 3.28 X1000 (1.4-6.5); NEUT% 62.7 % (42.2-75.2); PLT 158 X1000 (130-400); RBC 3.81 XMIL (4.7-6.1); RDW 17.2 % (11.5-14.5); WBC 5.23 X1000 (4.8-10.8)
[2019-04-16] MEDS: HUMULIN R SUBQ SCH ×4 (06:32→20:07)
[2019-04-16 06:51] LABS: POTASSIUM 4.7 mmol/L (3.5-5.1)
[2019-04-16 06:52] LABS: CALCIUM 8.4 mg/dL (8.8-10.2); CREATININE 3.7 mg/dL (0.7-1.2)
[2019-04-16] MEDS: MIRALAX PO SCH (08:24)
[2019-04-16] MEDS: NORVASC PO SCH (08:25)
[2019-04-16] MEDS: SODIUM BICARBONATE PO SCH ×2 (08:25→20:07)
[2019-04-16] MEDS: ASPIRIN EC PO SCH (08:25)
[2019-04-16] MEDS: IMDUR PO SCH (08:25)
--- NOTE | 2019-04-16 16:30 | EKG Report ---
Test Performed on : 04/16/2019 4:22:47 PM Test Reason : ectopy Blood Pressure : / mmHG Vent. Rate : 051 BPM Atrial Rate : 051 BPM P-R Int : 274 ms QRS Dur : 146 ms QT Int : 456 ms P-R-T Axes : 033 -43 -35 degrees QTc Int : 420 ms Sinus bradycardia. with 1st degree AV block. Left axis deviation Right bundle branch block Septal infarct (cited on or before 19-JUL-2014) Abnormal ECG When compared with ECG of 16-APR-2019 06:32, (Unconfirmed) Questionable change in initial forces of Anterior leads Confirmed by Esteban Crews MD ([id number]) on 04/17/2019 9:17:11 PM
[2019-04-16] MEDS: AVODART PO SCH (20:07)
[2019-04-16] MEDS: ULTRACET 37.5MG/325MG PO PRN (20:20)
[2019-04-16] MEDS: COREG PO SCH (21:24)
--- NOTE | 2019-04-16 21:49 | PROGRESS NOTE ---
DATE: 04/16/2019 SUBJECTIVE: Seeing Mr. Maxwell for Dr. Canela as Dr. Canela is off this weekend. The patient still complains of some shortness of breath he perceives. Denies chest pain. OBJECTIVE: Afebrile, pulse ranging 52 to 99 today, respirations 18, blood pressure 135/48, O2 saturation on room air 97-98%.CV: Regular rate and rhythm with frequent ectopy, rule out bigeminy pattern. Lungs: CTA. Abdomen: Protuberant, soft, nontender. Extremities: No calf tenderness, cords or edema. Neuro: Nonfocal. Cranial nerves intact. LABORATORY: Labs show sodium 143, potassium 4.7, chloride 113, CO2 of 16, BUN 78, BUN 78, creatinine 3.7 down from 4.2 earlier in the week. Blood sugars mid 100s primarily. Calcium 8.4, magnesium 2.4. White count 5.2, hemoglobin 11.3 and stable, platelets 158,000. Echocardiogram limited views done yesterday reveals moderate calcification of mitral annulus, atrial fibrillation noted at that time by report, mild MR, left atrial enlargement, mild AR, inferior wall hypokinesis, EF 50 to 55 percent, small pericardial effusion posterior aspect with no evidence of tamponade. No intracardiac mass or thrombus. ASSESSMENT: 1. Dyspnea. Rule out diastolic congestive heart failure acute on chronic. 2. Small pericardial effusion. 3. Ectopy with ventricular bigeminy. Rule out episodic atrial fibrillation. 4. Coronary artery disease. 5. Type 2 diabetes mellitus. 6. Acute kidney failure on chronic kidney disease. 7. Hypothyroidism with low free T4 with escalation in dose of the Synthroid from 25 mcg to [address] Canela. PLAN: For now patient is off his Coreg. Will leave that to Dr. Lees's discretion see if he wants to resume that. Continue the Synthroid. Sodium bicarbonate has been added per nephrology. He is on Imdur and Norvasc and aspirin. Continue to follow patient with repeat CBC and BMP in the morning. cc: MD Federico Bearden MD
--- NOTE | 2019-04-17 00:02 | EKG Report ---
Test Performed on : 04/16/2019 06:32:12 AM Test Reason : dyspnea Blood Pressure : / mmHG Vent. Rate : 055 BPM Atrial Rate : 055 BPM P-R Int : 286 ms QRS Dur : 150 ms QT Int : 456 ms P-R-T Axes : 042 -41 113 degrees QTc Int : 436 ms Sinus bradycardia. with 1st degree AV block. Left axis deviation Right bundle branch block Anteroseptal infarct (cited on or before 19-JUL-2014) T wave abnormality, consider lateral ischemia Abnormal ECG When compared with ECG of 15-APR-2019 06:21, (Unconfirmed) premature ventricular complexes. are no longer present Questionable change in initial forces of Anterior leads Confirmed by Esteban Crews MD ([id number]) on 04/17/2019 8:40:06 PM
[2019-04-17 05:34] LABS: BASO# 0.02 X1000 (0.0-0.2); BASO% 0.4 % (0.0-0.8); EOS% 5.8 % (0.0-10.0); HEMATOCRIT 37.2 % (42.0-52.0); HEMOGLOBIN 11.2 g/dL (14.0-18.0); LYMPH# 1.43 X1000 (1.2-3.4); LYMPH% 27.8 % (20.5-51.1); MCH 29.6 PG (27-31); MCHC 30.1 g/dL (33-37); MCV 98.2 FL (81-99); MONO# 0.52 X1000 (0.11-0.59); MONO% 10.1 % (1.7-9.3); MPV 9.2 FL (7.4-10.4); NEUT# 2.87 X1000 (1.4-6.5); NEUT% 55.9 % (42.2-75.2); PLT 141 X1000 (130-400); RBC 3.79 XMIL (4.7-6.1); RDW 17.3 % (11.5-14.5); WBC 5.14 X1000 (4.8-10.8)
--- NOTE | 2019-04-17 05:49 | EKG Report ---
Test Performed on : 04/17/2019 05:47:09 AM Test Reason : dyspnea Blood Pressure : / mmHG Vent. Rate : 056 BPM Atrial Rate : 056 BPM P-R Int : 270 ms QRS Dur : 144 ms QT Int : 450 ms P-R-T Axes : 026 -46 072 degrees QTc Int : 434 ms Sinus bradycardia. with 1st degree AV block. with premature supraventricular complexes. Left axis deviation Right bundle branch block Possible Septal infarct (cited on or before 19-JUL-2014) Abnormal ECG When compared with ECG of 16-APR-2019 16:22, (Unconfirmed) premature supraventricular complexes. are now present Confirmed by Esteban Crews MD ([id number]) on 04/17/2019 9:18:07 PM
[2019-04-17] MEDS: SYNTHROID PO SCH (06:02)
[2019-04-17] MEDS: HUMULIN R SUBQ SCH ×4 (06:03→21:34)
[2019-04-17 06:27] LABS: CALCIUM 8.1 mg/dL (8.8-10.2); CREATININE 3.1 mg/dL (0.7-1.2); POTASSIUM 4.9 mmol/L (3.5-5.1)
--- NOTE | 2019-04-17 06:54 | PROGRESS NOTE ---
DATE: 04/16/2019 SUBJECTIVE: The patient continues without shortness of breath or chest discomfort at rest while on room air. He does describe some episodes of postprandial chest discomfort which he has ascribed to reflux. There has been no orthopnea. OBJECTIVE: Blood pressure 156/75, heart rate 69, oxygen saturation 95% on room air. There is no significant jugular venous distention. Chest is clear to auscultation bilaterally. Cardiac exam reveals a regular rate and rhythm without appreciable murmur or gallop. There is no evidence of peripheral edema. DIAGNOSTIC DATA: Limited echocardiography indicates normal left ventricular ejection fraction. Mild pulmonary hypertension demonstrated by Doppler. There is mild aortic regurgitation as well as inferior wall hypokinesis. LABORATORY DATA: Includes a white blood cell count of 5.23, hematocrit 37.2, hemoglobin 11.3, platelet count 158,000. Sodium 143, potassium 4.7, chloride 113, carbon dioxide 16, BUN 78, creatinine 3.7, glucose 114. Initial troponin 0.06. Followup troponin 0.05. Magnesium 2.4. IMPRESSION: 1. [id number] renal dysfunction. 2. Atherosclerotic coronary disease. The patient is status post previous angioplasty/stent of left anterior descending coronary in the past, and had repeat angioplasty/stenting of proximal left anterior descending coronary artery in 11/2016 with drug-eluting stent. He also has history of previous angioplasty/stenting of obtuse marginal and proximal occlusion of the right coronary artery. 3. Chest symptoms atypical for myocardial ischemia. 4. Hypertension. 5. Hyperlipidemia. 6. Longstanding diabetes mellitus requiring insulin. RECOMMENDATIONS: 1. Given mild elevation in blood pressure, we will initiate Coreg as tolerated. 2. Given preserved left ventricular ejection fraction of 50% to 55% by echocardiography this admission, it would appear that forward cardiac output is sufficient to not be the etiology for decline in renal function. Suspect progression of medical renal disease more likely. No evidence of obstruction by renal ultrasound, which reports no hydronephrosis. 3. Given decline in renal function, we will gravitate towards medical management of the patient's coronary atherosclerosis at this point; however, should he have angina refractory to medical management, consideration may be given to invasive evaluation and treatment as long as renal function permits or if he is willing to accept the potential of hemodialysis. cc: MD Federico Diallo MD
--- NOTE | 2019-04-17 07:17 | NEPHROLOGY PROGRESS NOTE ---
DATE: 04/16/2019 SUBJECTIVE: He states he is some better. No shortness of breath, but he is still having episodes of chest fullness which he again describes as gas. OBJECTIVE: Blood pressure 156/75, heart rate 69, respirations 18, afebrile. Generally, no acute distress. Skin is warm and dry. Neck veins are not appreciated. Heart is regular, distant. Lungs are equal, clear. Abdomen obese, soft, nontender. Bowel sounds present. Extremities: Minimal edema. No clubbing or cyanosis. IMPRESSION AND PLAN: Acute kidney injury overlying chronic kidney disease. Creatinine 3.7 today, unchanged over the last 24 hours. His electrolytes are acceptable. His metabolic acidosis is improving with treatment. This may well be his baseline. Renal ultrasound performed on 04/14 showed 11 cm kidneys bilaterally. cc: MD Federico Ashley MD
[2019-04-17] MEDS: MIRALAX PO SCH (08:27)
[2019-04-17] MEDS: IMDUR PO SCH (08:27)
[2019-04-17] MEDS: SODIUM BICARBONATE PO SCH ×2 (08:27→21:34)
[2019-04-17] MEDS: COREG PO SCH ×2 (08:27→21:34)
[2019-04-17] MEDS: ASPIRIN EC PO SCH (08:27)
[2019-04-17] MEDS: NORVASC PO SCH (08:27)
--- NOTE | 2019-04-17 14:57 | PROGRESS NOTE ---
DATE: 04/17/2019 SUBJECTIVE: Patient is stable. No major complaints today. OBJECTIVE: Afebrile, pulse 52, respirations 18, blood pressure 139/69, room air O2 saturation 98%. He is having bowel movements daily. He ate 100% of his meal this morning. Laboratory: Labs show white count of 5.1, hemoglobin 11.2, platelets 141,000. Sodium 140, potassium 4.9, chloride 112, CO2 is 17, BUN 64, creatinine 3.1 which is down from 3.7 yesterday. Blood sugars are primarily in the 100s. Calcium 8.1. EKG this morning shows sinus bradycardia with first-degree AV block with PVCs, right bundle-branch block, left axis deviation, scar septally. ASSESSMENT: 1. Dyspnea, improved clinically. 2. Small pericardial effusion. 3. Ectopy with ventricular bigeminy and occasional premature ventricular contractions. 4. Coronary artery disease. 5. Acute kidney injury on chronic kidney disease. 6. Type 2 diabetes mellitus. 7. Hypothyroidism. PLAN: Dr. Lees added back his Coreg. He is on the sodium bicarbonate per nephrology. Insulin regimen is handling his blood sugars reasonably well. He is on aspirin, Norvasc, Imdur. Renal function seems to slightly be improved from yesterday. Continue to monitor. cc: MD Federico Bearden MD
[2019-04-17] MEDS: AVODART PO SCH (21:34)
[2019-04-17] MEDS: ULTRACET 37.5MG/325MG PO PRN (21:36)
[2019-04-18] MEDS: HUMULIN R SUBQ SCH ×4 (06:16→21:58)
[2019-04-18] MEDS: SYNTHROID PO SCH (06:16)
[2019-04-18 06:32] LABS: ALBUMIN 3.1 g/dL (3.5-5.0); CALCIUM 7.9 mg/dL (8.8-10.2); CREATININE 2.6 mg/dL (0.7-1.2); PHOSPHORUS 3.9 mg/dL (2.7-4.5); POTASSIUM 4.5 mmol/L (3.5-5.1)
--- NOTE | 2019-04-18 07:28 | EKG Report ---
Test Performed on : 04/18/2019 06:51:45 AM Test Reason : dyspnea Blood Pressure : / mmHG Vent. Rate : 056 BPM Atrial Rate : 056 BPM P-R Int : 288 ms QRS Dur : 148 ms QT Int : 454 ms P-R-T Axes : 019 -47 013 degrees QTc Int : 438 ms Sinus bradycardia. with 1st degree AV block. with occasional premature ventricular complexes. and pre mature atrial complexes. Left axis deviation Right bundle branch block Septal infarct (cited on or before 19-JUL-2014) Abnormal ECG When compared with ECG of 17-APR-2019 05:47, premature ventricular complexes. are now present Nonspecific T wave abnormality no longer evident in Lateral leads Confirmed by Esteban Crews MD ([id number]) on 04/20/2019 8:50:31 AM
[2019-04-18] MEDS: SODIUM BICARBONATE PO SCH ×2 (08:17→21:57)
[2019-04-18] MEDS: COREG PO SCH ×2 (08:17→21:57)
[2019-04-18] MEDS: ASPIRIN EC PO SCH (08:17)
[2019-04-18] MEDS: NORVASC PO SCH (08:17)
[2019-04-18] MEDS: MIRALAX PO SCH (08:17)
[2019-04-18] MEDS: IMDUR PO SCH (08:18)
--- NOTE | 2019-04-18 14:44 | CARDIOLOGY PROGRESS NOTE ---
DATE: 04/18/2019 SUBJECTIVE: Mr. Maxwell reports he is doing well. He is having some mild shortness of breath with exertion around the room. PHYSICAL EXAMINATION: He is afebrile, heart rate is 67, blood pressure 139/78. General: He is in no acute distress. Cardiovascular: He sounds to be in a regular rate and rhythm. He has no obvious murmurs. He has no S3. He has no lower extremity edema. Chest: Examination is clear bilaterally. No increased work of breathing. PERTINENT DATA: Sodium is 141, potassium is 4.5, BUN 56, creatinine 2.6 which is improved from 4.2 on presentation. He had a repeat of his echocardiogram on the , demonstrating an ejection fraction of 50 to 55 percent, small posterior pericardial effusion. ASSESSMENT: Mr. Maxwell is an 79-year-old gentleman with a history of coronary artery disease, previous percutaneous coronary intervention, who presented with acute renal insufficiency. PLAN: Blood pressure continues to be somewhat elevated. Heart rate is a little on the low side. I will increase his amlodipine to 5 mg daily. I do not have any acute recommendations. His renal function seems to be improving. His ejection fraction was normal on evaluation during this stay. Please contact us if we can be of further assistance with the patient. cc: MD Federico Blackburn MD
--- NOTE | 2019-04-18 15:27 | NEPHROLOGY PROGRESS NOTE ---
DATE: 04/18/2019 TIME SEEN: 0745 SUBJECTIVE: Mr. Maxwell is resting quietly in bed. His is at his bedside. He states that he is feeling just slightly better. He denies any specific complaints of chest pain or discomfort. OBJECTIVE: Patient's most recent vital signs: His last temperature 97.7 degrees, blood pressure 148/66, heart rate 55, respirations are 16, he is on room air, last recorded saturation is 96%. Intake and Output: He has had 800 recorded in. He has had 0 recorded out. General: On physical exam, this is an 79-year-old white male. He is currently resting quietly in bed. He appears in no acute distress. Skin is warm and dry. HEENT: Normocephalic, atraumatic. Conjunctiva is pale pink. He has NARCISA. Mucous membranes are dry. Neck: Supple. Trachea midline. No evidence of JVD. Cardiovascular: He has regular rate and rhythm. He remains on O2. Abdomen: Soft. Nontender. Positive bowel sounds. Genitourinary: Not inspected. Patient has an adult diaper in place. Extremities have pitting edema up into bilateral hips. The patient states this is chronic. Neurological: He is alert and oriented to person and to place. Integumentary: Patient does have a slight bruise noted to his right jaw. Able to follow commands. LABORATORY DATA: Sodium is 141, potassium 4.5, chloride 111, CO2 of 17, BUN 56, his creatinine is 2.6, his glucose is 143, he has an anion gap of 13, calcium is 7.9, phosphorus is 3.9, albumin is 3.1. The patient has a previous hemoglobin of 11.2 on the . ASSESSMENT AND PLAN: 1. Acute kidney injury overlying chronic kidney disease. Patient's baseline creatinine is low to mid 2's over the last year. Creatinine is now down to 2.6 with a BUN of 56. Unable to determine urine output. There are no acute indications for dialysis. 2. Electrolytes and acid-base balance. Patient does remain acidotic. His anion gap is closing. He has been started on sodium bicarbonate. No indications for changes. We will evaluate labs in the a.m. 3. Anemia. This is low but stable. 4. Congestive heart failure. This is followed by Cardiology and the primary care team. I would like to thank you for allowing us to follow with this patient. Dictated by NIKKI Mcdonald for Babak Sarmiento MD Face to face encounter, data reviewed, discussed with Tamiko Gonzalez on 04/18/19. I agree with the above assessment and plan of care. cc: NIKIK Mcdonald MD Jagan Reddy, MD [facility]
--- NOTE | 2019-04-18 20:59 | PROGRESS NOTE ---
DATE: 04/18/2019 SUBJECTIVE: Events noted over the weekend. I appreciate cardiology consult. He is in sinus, decreased PVCs. He has a bundle branch block. His shortness of breath is slowly improving, as well as chronic acute kidney failure as well. REVIEW OF SYSTEMS: Decreased shortness of breath. OBJECTIVE: Vital Signs: Temperature is 97 degrees, pulse is 87, blood pressure is 128/59. HEENT: Within normal limits. Neck: Supple. No lymphadenopathy. Chest: Bilateral air entry. Heart: Sounds are regular. Abdomen: Belly is soft, nontender. Good bowel sounds. Neurologic: No neurological deficits. INVESTIGATIONS: Sodium 140, potassium 4.5, chloride 111, BUN 56, creatinine 2.6, glucose 207. Cardiac enzymes were negative. ProBNP 13,000. ASSESSMENT AND PLAN: 1. Acute kidney failure with chronic kidney disease, improving. 2. Exertional shortness of breath, due to ischemic cardiomyopathy, ejection fraction 45 to 50 percent. Because of these premature ventricular contractions, most likely forward failure and hypertension, slowly increasing the Coreg and amlodipine. 3. Benign prostatic hypertrophy, status post transurethral resection of prostate. Removed suprapubic catheter. On Avodart. I did a prostate exam, which is still less than 10 g. 4. Type 2 diabetes, insulin dependent, on sliding scale with insulin coverage. Slowly started on Levemir. 5. Hypothyroidism, on Synthroid. 6. Chronic pain, on tramadol and out of the bed. Probably he needs a cardiac workup. Will discuss at least a stress test prior to the discharge. Will discuss with Dr. Ajay mendosa. LEVEL OF DOCUMENTATION: [25] cc: MD JOSE ANTONIO Christensen
[2019-04-18] MEDS: ULTRACET 37.5MG/325MG PO PRN (21:57)
[2019-04-18] MEDS: AVODART PO SCH (21:57)
[2019-04-19] MEDS: HUMULIN R SUBQ SCH ×4 (06:39→21:28)
[2019-04-19 06:40] LABS: ALBUMIN 3.1 g/dL (3.5-5.0); CALCIUM 7.8 mg/dL (8.8-10.2); CREATININE 2.3 mg/dL (0.7-1.2); PHOSPHORUS 3.4 mg/dL (2.7-4.5); POTASSIUM 4.5 mmol/L (3.5-5.1)
[2019-04-19] MEDS: SYNTHROID PO SCH (06:42)
[2019-04-19] MEDS: IMDUR PO SCH (08:30)
[2019-04-19] MEDS: ASPIRIN EC PO SCH (08:30)
[2019-04-19] MEDS: COREG PO SCH ×2 (08:30→21:28)
[2019-04-19] MEDS: SODIUM BICARBONATE PO SCH ×2 (08:30→21:28)
[2019-04-19] MEDS: MIRALAX PO SCH (08:30)
[2019-04-19] MEDS: NORVASC PO SCH (08:30)
--- NOTE | 2019-04-19 13:25 | NEPHROLOGY PROGRESS NOTE ---
DATE: 04/19/2019 SUBJECTIVE: Mr. Maxwell is resting quietly in bed. He has no complaints of shortness of breath or chest pain. is at his bedside. OBJECTIVE: Vital Signs: Temperature 98.4 degrees, blood pressure 154/74, heart rate 59, respirations 23. He is on room air, last recorded saturation 97%. He has had 480 in, he has had 350 out to Wolff catheter. LABS: Sodium 141, potassium 4.5, chloride 112, CO2 18, BUN 52, creatinine 2.3, glucose 117, anion gap 11, calcium 7.8, phosphorus 3.4, albumin 3.1. Previous hemoglobin 11.2. PHYSICAL EXAMINATION: General: This is an 79-year-old white male resting quietly in bed. He appears chronically ill, though no acute distress. Skin: Warm and dry. HEENT: Normocephalic, atraumatic. Conjunctivae pale. He has NARCISA. Mucous membranes are dry. Neck: Supple. Trachea midline. No JVD. Cardiovascular: He is regular rate and rhythm. No murmur or gallop appreciated. Lungs: Clear to auscultation bilaterally. Equal excursion on O2. Abdomen: Soft, nontender, positive bowel sounds. Large round. Genitourinary: Not inspected. Patient has been voiding adequate amounts. Extremities: Continues with trace to 1+ lower extremity edema up into the hip. Alert and oriented to person and to place. Most recent events, integumentary slight bruising noted to his right jaw. Able to follow commands. ASSESSMENT AND PLAN: 1. Acute kidney injury overlying chronic kidney disease. Patient's historical baseline is in the 1.82 range. Creatinine is down to 2.3. Difficult to determine urinary output. No indications for urinalysis. 2. Electrolytes, acid-base balance, and anemia. These are all acceptable. 3. Congestive heart failure, followed by cardiology and the primary care team. PLAN: We will continue to follow with patient. Plan for follow up in our office in 2 to 3 weeks after discharge. I would like to thank you for allowing us to follow with this patient. Dictated by NIKKI Mcdonald for Babak Sarmiento MD Face to face encounter, data reviewed, discussed with Tamiko Gonzalez on 04/19/19. I agree with the above assessment and plan of care. cc: NIKKI Mcdonald MD Jagan Reddy, MD [facility]
--- NOTE | 2019-04-19 21:17 | PROGRESS NOTE ---
DATE: 04/19/2019 SUBJECTIVE: The patient is slowly improving. threat monitoring analyst showed, over the weekend, nonsustained ventricular tachycardia. He is also throwing PVCs with compensated pauses, heart rate dipping and 50s. He has underlying right bundle. Last stress test was done in 2013. He is complaining of exertional shortness of breath. OBJECTIVE: Temperature is 98.0 degrees, pulse 57, blood pressure 140/70, 93% on room air.HEENT: Within normal limits. Chest: Clear. Heart: Sounds are regular. Abdomen: Belly is soft, nontender. LABS: Sodium 141, potassium 4.5, chloride 112, BUN 52, creatinine 2.3, glucose 210. ASSESSMENT AND PLAN: 1. Coronary artery disease, with right bundle and premature ventricular contractions, nonsustained ventricular tachycardia, exertional shortness of breath. Scheduled for a stress test in the morning. In the meantime, very judicious use of Coreg in light of the right bundle and decreasing the heart rate. 2. Hypertension. Started on Norvasc. 3. Diabetes. Hold on Levemir. Currently on sliding scale with insulin coverage. 4. Chronic renal failure with acute kidney injury, improving slowly. Restarted on isosorbide and Synthroid. 5. Pain, for Ultracet. 6. Will keep on n.p.o. and schedule for stress test in the morning. LEVEL OF DOCUMENTATION: 25 minutes. cc: Federico Canela MD
[2019-04-19] MEDS: AVODART PO SCH (21:28)
[2019-04-19] MEDS: ULTRACET 37.5MG/325MG PO PRN (21:47)
[2019-04-20 06:07] LABS: ALBUMIN 3.1 g/dL (3.5-5.0); CALCIUM 8.5 mg/dL (8.8-10.2); CREATININE 2.1 mg/dL (0.7-1.2); PHOSPHORUS 3.3 mg/dL (2.7-4.5); POTASSIUM 4.4 mmol/L (3.5-5.1)
[2019-04-20] MEDS: HUMULIN R SUBQ SCH ×4 (06:42→22:15)
[2019-04-20] MEDS ORDERED: LEXISCAN ONE (08:22)
[2019-04-20] MEDS ORDERED: AMINOPHYLLINE ONE (09:07)
[2019-04-20] MEDS: MIRALAX PO SCH (10:20)
[2019-04-20] MEDS: IMDUR PO SCH (10:20)
[2019-04-20] MEDS: ASPIRIN EC PO SCH (10:20)
[2019-04-20] MEDS: SODIUM BICARBONATE PO SCH ×2 (10:20→22:14)
[2019-04-20] MEDS: COREG PO SCH ×2 (10:21→22:14)
[2019-04-20] MEDS: NORVASC PO SCH (10:21)
[2019-04-20] MEDS: SYNTHROID PO SCH (10:21)
--- NOTE | 2019-04-20 11:06 | NEPHROLOGY PROGRESS NOTE ---
DATE: 04/20/2019 TIME SEEN: 0810. SUBJECTIVE: Mr. Maxwell is currently on the scanner for his stress test. He denies any discomfort. OBJECTIVE: Vital Signs: Temperature 98.4 degrees, blood pressure 149/68, heart rate 89, respirations 21. He is currently on room air. He has had 480 in. He has had 0 recorded out, though patient has been voiding and is, at times, incontinent. Laboratory Data: Sodium 138, potassium 4.4, chloride is 109, CO2 is 20, BUN 47, creatinine 2.1, glucose 126, his anion gap is 9, calcium 8.5, phosphorus 3.3, albumin 3.1. Previous hemoglobin 11.2. Physical Examination: General: This is an 79-year-old, white male resting quietly, currently on a stretcher for his GXT stress test. No acute distress. Skin is warm and dry. HEENT: Normocephalic and atraumatic. Conjunctivae are pale. Mucous membranes are dry. Neck: Supple. Trachea midline. No evidence of JVD. Unable to examine cardiovascular, lungs and abdomen secondary to patient currently being on the scan table. He has trace lower extremity edema. Alert and oriented to person and to place. ASSESSMENT AND PLAN: 1. Acute kidney injury overlying chronic kidney disease. The patient is approaching his historical baseline. Difficult to determine his urinary output. No indications for dialysis. 2. Electrolytes, acid-base balance, and anemia. These are all acceptable. 3. Congestive heart failure. Followed by the primary care and cardiology. Currently undergoing a stress test at this time. I would like to thank you for allowing us to follow with this patient. Dictated by NIKKI Mcdonald for Babak Sarmiento MD Face to face encounter, data reviewed, discussed with Tamiko Gonzalez on 04/20/19. I agree with the above assessment and plan of care. cc: NIKKI Mcdonald MD Jagan Reddy, MD [facility]
--- NOTE | 2019-04-20 11:15 | EKG Report ---
Test Performed on : 04/20/2019 10:47:38 AM Test Reason : cp Blood Pressure : / mmHG Vent. Rate : 076 BPM Atrial Rate : 076 BPM P-R Int : 264 ms QRS Dur : 144 ms QT Int : 418 ms P-R-T Axes : 005 -55 034 degrees QTc Int : 470 ms Sinus rhythm. with 1st degree AV block. with frequent and consecutive premature ventricular complexes . Left axis deviation Right bundle branch block Anterior infarct (cited on or before 19-JUL-2014) Abnormal ECG When compared with ECG of 18-APR-2019 06:51, premature atrial complexes. are no longer present Questionable change in initial forces of Septal leads Confirmed by Esteban Crews MD ([id number]) on 04/23/2019 8:45:21 PM
--- NOTE | 2019-04-20 14:25 | Diag Imaging Result Document ---
PROCEDURE NAME: MYOCARDIAL PERF SCAN, STR/REST - 04/20/2019 SUMMARY: The patient was administered 14.7 mCi of technetium-99m sestamibi, after which resting cardiac images were obtained. The patient was subsequently administered Lexiscan 0.4 mg intravenously, after which the heart rate went from 56 beats per minute to 73 beats per minute and the blood pressure went from 166/74 to 135/84. Following the administration of Lexiscan, the patient initially experienced no chest discomfort. However, in delayed fashion, he reported left- sided chest pressure of moderate intensity with some nausea. He was subsequently given Aminophylline 125 mg intravenously with relief. Following the administration of Lexiscan, the patient was administered an additional 47.0 mCi of technetium-99m sestamibi, after which gated stress cardiac images were obtained. Baseline ECG demonstrated sinus bradycardia with first-degree AV block and occasional premature ventricular complex. Right bundle branch block demonstrated. Left axis deviation demonstrated, possibly due to left anterior fascicular block. Following the administration of Lexiscan, there were no diagnostic ST-segment changes. SPECT images were reconstructed in the short, horizontal, vertical long axis. Review of these images demonstrated a medium-sized area of moderate to severely diminished activity in the mid to apical anterior wall on stress images, which partially improves at its periphery, but does not normalize on resting images. There is also a small area of mildly diminished activity in the base of the inferior wall with stress images, which appears similar on resting images. Gated images demonstrate a calculated left ventricular ejection fraction of 46% with symmetrical wall motion/thickening. CONCLUSIONS: 1. Adequate response to Lexiscan. 2. Clinically, the patient reported chest discomfort (pressure) along with nausea in a somewhat delayed fashion following the administration of Lexiscan. 3. Electrocardiographically, there were no diagnostic ST-segment changes on ECG following the administration of Lexiscan. 4. Lexiscan sestamibi images demonstrate medium-sized area of partial reversibility as described in the mid to apical anterior wall suggesting previous infarction with some gerhard-infarct ischemia. There is also a small area of fixed mildly diminished activity in the base of the inferior wall, probably more likely due to diaphragm attenuation artifact. Calculated left ejection fraction 46%. Clinical correlation recommended. cc: MD Federico Diallo MD MTDD
--- NOTE | 2019-04-20 21:27 | PROGRESS NOTE ---
DATE: 04/20/2019 SUBJECTIVE: Patient went for the stress test and he had a nonsustained ventricular tachycardia. Online Facilitator came by and he has EKG showing PVCs intermittent, currently in sinus with right bundle branch block. Patient complains of exertional shortness of breath. OBJECTIVE: Vital Signs: Temperature is 97 degrees, pulse is 106. Vitals are stable. HEENT: Within normal limits. Chest: Bilateral air entry. Heart: Distant heart sounds. Abdomen: Belly is soft, nontender. Neurologic: No obvious deficits. INVESTIGATIONS: Sodium 138, potassium 4.4, chloride 109, BUN 47, creatinine 2.1, glucose 126. ASSESSMENT AND PLAN: 1. Exertional shortness of breath, underlying ischemic cardiomyopathy, with abnormal electrocardiogram, right bundle with decompensated premature ventricular contractions, and recurrent wide complex nonsustained ventricular tachycardia. Currently, on amlodipine, aspirin, Coreg. Follow up on stress test result. 2. Acute kidney disease on chronic renal failure, improving. 3. Benign prostatic hypertrophy, status post transurethral resection of prostate. Negative malignancy. On Avodart. 4. Continue present treatment. Encouraged early ambulation. 5. Will follow up on the stress test. LEVEL OF DOCUMENTATION: 25 minutes. cc: Federico Canela MD
[2019-04-20] MEDS: ULTRACET 37.5MG/325MG PO PRN (22:13)
[2019-04-20] MEDS: AVODART PO SCH (22:14)
[2019-04-21 05:54] LABS: ALBUMIN 3.2 g/dL (3.5-5.0); CALCIUM 8.3 mg/dL (8.8-10.2); PHOSPHORUS 3.1 mg/dL (2.7-4.5); POTASSIUM 4.4 mmol/L (3.5-5.1)
[2019-04-21] MEDS: HUMULIN R SUBQ SCH ×4 (06:05→21:41)
[2019-04-21] MEDS: SYNTHROID PO SCH (06:06)
[2019-04-21] MEDS: MIRALAX PO SCH (08:31)
[2019-04-21] MEDS: IMDUR PO SCH (08:32)
[2019-04-21] MEDS: ASPIRIN EC PO SCH (08:32)
[2019-04-21] MEDS: NORVASC PO SCH (08:32)
[2019-04-21] MEDS: COREG PO SCH ×2 (08:32→21:40)
[2019-04-21] MEDS: SODIUM BICARBONATE PO SCH ×2 (08:32→21:40)
--- NOTE | 2019-04-21 13:02 | NEPHROLOGY PROGRESS NOTE ---
DATE: 04/21/2019 TIME SEEN: 0805. SUBJECTIVE: Mr. Maxwell is resting quietly in bed. He has no complaints. LABORATORY DATA: Sodium 140, potassium 4.4, chloride 110, CO2 of 21, BUN 43, creatinine 2, glucose 125, anion gap 9, calcium 8.3, phosphorus 3.1, albumin 3.2. Previous hemoglobin 11.2. Stress test is nonspecific, showing an ejection fraction of 46%. OBJECTIVE: Vital Signs: Temperature 98.1 degrees, blood pressure 154/74, heart rate 63, respirations 20. He is on room air. Last recorded saturation 97%. He has had 480 in. He has had 0 recorded out, though he has been voiding with an adult pad. General: This is an 79-year- old white male, resting quietly in bed. No acute distress. Skin: Warm and dry. HEENT: Normocephalic, atraumatic. Conjunctiva is pale pink. He has NARCISA. Mucous membranes are dry. Neck: Supple. Trachea midline. He has no evidence of JVD. Cardiovascular: Regular rate and rhythm. He is without murmur or gallop. Lungs: Clear to auscultation bilaterally. Equal excursion. Abdomen: Large, round, soft, nontender. Positive bowel sounds. Genitourinary: Not inspected. Extremities: Trace lower extremity edema. Neurological: Alert and oriented x3. ASSESSMENT: 1. Acute kidney injury overlying chronic kidney disease. The patient is at his historical baseline. No indications for intervention. Adequate urine out is difficult to determine. No indications for dialysis. 2. Electrolytes, acid-base balance, and anemia. These are all acceptable. 3. Heart failure, followed by Cardiology and primary care. PLAN: We will plan followup with the patient in 2 to 4 weeks after discharge, with labs. I would like to thank you for allowing us to follow with this patient. Dictated by NIKKI Mcdonald for Babak Sarmiento MD Face to face encounter, data reviewed, discussed with Tamiko Gonzalez on 04/21/19. I agree with the above assessment and plan of care. cc: NIKKI Mcdonald MD Jagan Reddy, MD [facility]
[2019-04-21] MEDS ORDERED: AMBIEN PO PRN (18:31)
[2019-04-21] MEDS: AVODART PO SCH (21:40)
--- NOTE | 2019-04-21 21:40 | PROGRESS NOTE ---
DATE: 04/21/2019 SUBJECTIVE: Patient is a little better. Patient has nonsustained ventricular tachycardia and continues to improve. Exertional shortness of breath. Dr. Moss increased the isosorbide. OBJECTIVE: Vital Signs: On exam, temperature is 98, pulse is 60. Vitals are stable. HEENT: Within normal limits. Chest: Clear. Heart: Sounds are regular. Abdomen: Belly is soft, nontender. INVESTIGATIONS: Sodium 140, potassium 4.4, BUN 43, creatinine 2. ASSESSMENT AND PLAN: 1. Acute kidney injury, improving. 2. Ischemic cardiomyopathy, ejection fraction 45%, currently on Coreg 3.125 b.i.d., Norvasc 5 mg daily, aspirin. 3. Benign prostatic hypertrophy, on Avodart. 4. Type 2 diabetes. Will slowly decrease the insulin, on Levemir. 5. Ischemic cardiomyopathy, on isosorbide 90 mg daily. 6. Hypothyroidism, on Synthroid. 7. Chronic pain, on Ultracet. 8. Ambien for sleep. 9. Will arrange outpatient 30 day loop monitor. 10. Follow up with Dr. Moss as an outpatient for ischemic cardiomyopathy. 11. Will discharge in the morning. LEVEL OF DOCUMENTATION: 25 minutes. cc: Federico Canela MD
[2019-04-21] MEDS: ULTRACET 37.5MG/325MG PO PRN (22:50)
[2019-04-22 05:57] LABS: ALBUMIN 3.1 g/dL (3.5-5.0); CALCIUM 8.4 mg/dL (8.8-10.2); POTASSIUM 4.6 mmol/L (3.5-5.1)
[2019-04-22] MEDS: HUMULIN R SUBQ SCH (06:14)
[2019-04-22] MEDS: SYNTHROID PO SCH (06:22)
[2019-04-22 07:56] VITALS: BP 152/73
[2019-04-22] MEDS: ASPIRIN EC PO SCH (08:33)
[2019-04-22] MEDS: COREG PO SCH (08:33)
[2019-04-22] MEDS: MIRALAX PO SCH (08:33)
[2019-04-22] MEDS: NORVASC PO SCH (08:33)
[2019-04-22] MEDS: SODIUM BICARBONATE PO SCH (08:33)
[2019-04-22] MEDS: IMDUR PO SCH (08:33)
--- NOTE | 2019-04-22 13:34 | NEPHROLOGY PROGRESS NOTE ---
DATE: 04/22/2019 SUBJECTIVE: He is anticipating discharge this morning. No further chest pain. OBJECTIVE: Vital Signs: Blood pressure 152/73, heart rate 60, respirations 20, afebrile. Generally: No acute distress. Skin: Warm and dry. Conjunctivae are pink. Neck: Neck veins are not distended. Heart: Regular. Lungs: Equal. Extremities: Have trace edema. IMPRESSION: Chronic kidney disease. Overlying RAHEEL is resolved. He is likely at his new baseline. We will follow him as an outpatient. Okay for discharge. cc: MD Federico Ashley MD
--- NOTE | 2019-04-24 16:34 | DISCHARGE SUMMARY ---
ADMISSION DATE: 04/14/2019 DISCHARGE DATE: 04/22/2019 DISCHARGING DIAGNOSIS: Acute kidney injury with chronic kidney disease due to followed failure from ischemic cardiomyopathy. SECONDARY DIAGNOSIS: 1. Recurrent nonsustained ventricular tachycardia. 2. Ischemic cardiomyopathy with ejection fraction is 45%. 3. Right bundle branch block. 4. Abnormal telemetry monitoring with multiple premature ventricular contractions with compensated pause. 5. Chronic renal failure. Baseline creatinine 2.0. 6. Benign prostatic hypertrophy status post transurethral resection of prostate. 7. Coronary artery disease with a stent in left anterior descending. 8. Type 2 diabetes, hypertension, hypothyroidism. CONSULTS: Dr. Moss and Dr. Sarmiento. PROCEDURES: Myocardial perfusion scan reported. Lexiscan showed patient has a chest discomfort with nausea. Nondiagnostic ECG changes. Medium-sized partial reversibility mid apical anterior wall with gerhard-infarct ischemia, small area of diminished activity in the base of inferior wall. EF is 46%. Renal ultrasound left renal cyst, no hydronephrosis. Chest x-ray, cardiomegaly with small pleural effusion. BRIEF HISTORY: Please see the H and P that was done on 04/14/2019. In brief he is an 79-year-old white gentleman was admitted to the hospital with shortness of breath on exertion associated with fatigue and weakness. Chest x-ray cardiomegaly. He has worsening of creatinine 4.6 with baseline 2.0. The patient was admitted to the hospital in [facility]. During playground monitor he had heart rate dropping to close to 40 with underlying right bundle branch block associated with PVCs and recurrent nonsustained ventricular tachycardia and the medicines were discontinued, mostly Coreg. Cardiology consult was obtained and slowly his renal function test came back normal. During playground monitor patient has recurrent nonsustained ventricular tachycardia. After kidney function test came back normal I did a stress test which showed not completely normal findings. Dr. Moss was consulted. He was relegated to medical management at this time because of the chronic kidney disease by decreasing the Coreg, started on amlodipine and also increasing the isosorbide 90 mg daily. At this time he did not require any dialysis. LABS: CBC. White cell count 5.1, hematocrit 37.2, platelets 141,000. Sodium 138, potassium 4.6, chloride 106, BUN 42, creatinine 2.0, glucose 138. Urine cultures were negative. DISCHARGE INSTRUCTIONS: The patient was discharged home with the following instructions. 1. Outpatient 30 day loop monitor. 2. Synthroid 50 mcg daily, Levemir 20 units in the morning, isosorbide 90 daily, Coreg 3.125 p.o. b.i.d., Ultracet 1 tablet q.6 for pain, MiraLAX 17 g daily, Avodart 0.5 daily, amlodipine 5 mg daily and follow up in my office in 2 weeks as well as Dr[address] Moss. cc: MD Dr. Ajay Christensen
== END 2019-04-22 10:46 | disposition home or self-care (01) | DRG 683 ==
LOC: DIRADM 14:06 → 3N 14:35 → 3S 17:08
PROVIDERS: ADMIT Internal Medicine; ATTEND Internal Medicine
CPT/HCPCS: 71010; 71045; 76770; 78452; 80048; 80069; 80162; 82550; 82948; 83735; 83880; 84439; 84443; 84484; 85025; 85027; 93005; 93010; 93017; 93308; A9270; A9500; J0280; J0820; J2785; XXXXX